=== PATIENT | female | born 1945 | race Two or more races ===

== ENCOUNTER 2020-01-09 06:38 | Inpatient (IN) | payer MEDICAID, OTHER ==
[~2020-01-09] VITALS: Ht 157.5 cm; Wt 61.4 kg
--- NOTE | 2020-01-09 07:03 | NUR ---
PT CAME TO ER BED 3 BIB RA FROM HOME WITH A BLOOD SUGAR OF 47 AT HOME. PT IS AAOX0. PATIENT IS RESPONSIVE TOWARDS PAIN AND FOLLOWS COMMAND. PATIENT IS IN A SOILED DIAPER. PATIENT IS BREATHING EVENLY AND UNLABORED ON ROOM AIR. CONNECTED TO MONITOR.
--- NOTE | 2020-01-09 07:05 | NUR ---
PT CLEANED. DIAPER AND LINEN CHANGED.
--- NOTE | 2020-01-09 07:08 | NUR ---
154 POC BS. MD MADE AWARE
--- NOTE | 2020-01-09 07:08 | NUR ---
BLOOD SUGAR AT 154, MD NOTIFIED.
--- NOTE | 2020-01-09 07:10 | NUR ---
URINE COLLECTED AND SENT TO LAB
--- NOTE | 2020-01-09 07:10 | NUR ---
BLOOD COLLECTED AND SENT TO LAB
--- NOTE | 2020-01-09 07:11 | NUR ---
PATIENT IS CLEANED, GIVEN BED BATH. AND CHANGED INTO NEW GOWN AND NEW SHEETS.
--- NOTE | 2020-01-09 07:15 | NUR ---
EKG AT BEDSIDE
--- NOTE | 2020-01-09 07:43 | NUR ---
ASSESSED PT ON BED AWAKE, AAOX1, NOT IN RESPIRATORY DISTRESS, HOOKED TO SUPERVISOR PASTE MIXING, KEPT RESTED AND COMFORTABLE. WILL CONTINUE TO MONITOR.
[2020-01-09 07:48] LABS: APPEARANCE,URINE CLOUDY (CLEAR); BILIRUBIN,URINE NEGATIVE (NEGATIVE); BLOOD, URINE TRACE-INTA Ery/uL (NEGATIVE); COLOR,URINE YELLOW (YELLOW); KETONES,URINE NEGATIVE (NEGATIVE); LEUKOCYTE ESTERASE ,URINE NEGATIVE (NEGATIVE); NITRITE, URINE NEGATIVE (NEGATIVE); PH,URINE 5.5 (5.0-8.0); PROTEIN,URINE 100 mg/dl (NEGATIVE); UGLUCOSE NEGATIVE (NEGATIVE); UROBILINOGEN,URINE 0.2 EU/dL (0.2)
[2020-01-09] MEDS ORDERED: FERR325T23 PO (07:55)
[2020-01-09] MEDS ORDERED: LISI40TA4 PO (07:55)
[2020-01-09] MEDS ORDERED: LEVO100T9 PO (07:55)
[2020-01-09] MEDS ORDERED: MELO-107 PO (07:55)
[2020-01-09] MEDS ORDERED: SIMV-46 PO (07:55)
[2020-01-09] MEDS ORDERED: SERT50TA12 PO (07:55)
[2020-01-09] MEDS ORDERED: GLIM2TAB31 PO (07:55)
[2020-01-09 08:00] LABS: BASOPHILS # (AUTO) 0.1 /CMM (0.0-0.2); BASOPHILS % (AUTO) 0.3 % (0.0-2.0); EOSINOPHILS % (AUTO) 0.8 % (0.0-6.0); HEMATOCRIT 29 % (33-45); HEMOGLOBIN 9.7 g/dL (11.5-14.8); LYMPHOCYTES # (AUTO) 0.8 /CMM (0.8-4.8); LYMPHOCYTES % (AUTO) 4.4 % (20.0-44.0); MEAN CORPUSCULAR HGB CONC 33 g/dl (31.0-36.0); MEAN CORPUSCULAR VOLUME 82 fL (82-100); MONOCYTES % (AUTO) 11.2 % (2.0-12.0); NEUTROPHILS # (AUTO) 14.8 /CMM (1.8-8.9); NEUTROPHILS % (AUTO) 83.3 % (43.0-81.0); PLATELET COUNT (AUTO) 326 /CMM (150-450); RED BLOOD CELL COUNT(AUTO) 3.58 MIL/uL (4.0-5.2); WHITE BLOOD COUNT (AUTO) 17.7 K/uL (4.3-11.0)
[2020-01-09 08:03] LABS: CALCIUM, SERUM 8.3 mg/dL (8.5-10.1); CARBON DIOXIDE 24 mmol/L (21-32); CHLORIDE 97 mmol/L (98-107); CREATININE 1.6 mg/dL (0.6-1.3); GLUCOSE 131 mg/dL (74-106); POTASSIUM 3.9 mmol/L (3.5-5.1); SODIUM SERUM 130 mmol/L (136-145); UREA NITROGEN, BLOOD 31 mg/dL (7-18)
[2020-01-09 08:10] LABS: ALANINE AMINOTRANSFERASE 9 U/L (12-78); ALBUMIN 3.4 g/dL (3.4-5.0); ALKALINE PHOSPHATASE 108 U/L (46-116); ASPARTATE AMINOTRANSFERASE 16 U/L (15-37); BILIRUBIN,DIRECT 0.1 mg/dL (0.0-0.2); BILIRUBIN,TOTAL 0.3 mg/dL (0.2-1.0); LIPASE 30 U/L (73-393); TOTAL PROTEIN, SERUM 7.8 g/dL (6.4-8.2)
[2020-01-09 08:12] LABS: BACTERIA,URINE 1+ /HPF (None Seen); WBC,URINE 0-2 /HPF (0-3)
[2020-01-09 08:13] LABS: MUCUS,URINE Moderate /LPF (None Seen); URINE AMORPHOUS URATE Moderate /HPF (None Seen)
--- NOTE | 2020-01-09 08:40 | NUR ---
PAGED [facility].
--- NOTE | 2020-01-09 08:54 | NUR ---
NOTED ELEVATED BLOOD PRESSURE. AWARE.
--- NOTE | 2020-01-09 09:35 | NUR ---
2nd page to Cresencio Flores for admission
--- NOTE | 2020-01-09 10:22 | NUR ---
ROOM GIVEN 304-1 TELE
--- NOTE | 2020-01-09 10:55 | NUR ---
REPORT GIVEN TO JASKARAN SERRANO FOR YOLIS.
--- NOTE | 2020-01-09 11:47 | NUR ---
MS/RN Hypertension Blood pressure on admission 221/82. Dr Flores informed, awaiting orders.
[2020-01-09 11:53] VITALS: BP 221/82
--- NOTE | 2020-01-09 11:58 | NUR ---
MS/RN Blood sugar Blood sugar on arrive 84.
[2020-01-09] MEDS ORDERED: hydrALAZINE HCL 50 MG TABLET PO ONE (13:00)
--- NOTE | 2020-01-09 13:20 | NUR ---
MS/RN Orders Call received from Dr Flores - hydralazine 50mg PO X1 dose.
[2020-01-09] MEDS ORDERED: IV NS 0.9% 1,000 ML IV PRN (13:38)
[2020-01-09] MEDS ORDERED: DEXTROSE 50%-WATER 50 ML DISP.SYRIN IV PRN (14:00)
[2020-01-09] MEDS ORDERED: Z GUARD REMEDY 2 OZ OINT TP PRN (14:00)
[2020-01-09 14:24] VITALS: BP 146/83
[2020-01-09] MEDS: IV D5/ 0.9% NACL 1,000 ML IV PRN (14:33)
[2020-01-09] MEDS ORDERED: ACETAMINOPHEN 325 MG TABLET ONE (14:57)
[2020-01-09] MEDS: ACETAMINOPHEN 325 MG TABLET PO PRN (14:58)
[2020-01-09] MEDS ORDERED: ENOXAPARIN SODIUM 30 MG/0.3 ML DISP.SYRIN ONE (15:00)
[2020-01-09] MEDS: ENOXAPARIN SODIUM 30 MG/0.3 ML DISP.SYRIN SQ SCH (15:04)
[2020-01-09 16:00] VITALS: BP 129/67
--- NOTE | 2020-01-09 16:07 | NUR ---
MS/RN Medications Lovenox and 650mg tylenol administered, unable to scan as system down at this time.
[2020-01-09] MEDS: BLOOD SUGAR DIAGNOSTIC 1 EACH STRIP IN SCH ×2 (16:49→22:04)
[2020-01-09] MEDS: FERROUS SULFATE (325 MG) 325 MG/TAB TABLET PO SCH (16:49)
--- NOTE | 2020-01-09 18:26 | NUR ---
MS/RN End note Blood pressure now controlled, latest reading 129/67. Complaining of headache, tylenol given with good result. Blood sugar 92, encouraged to eat dinner to prevent blood glucose fron dropping, patient stated understanding. Able to turn and reposition self in bed, needs frequent reminders to keep left arm straight due to heplock positioning. All needs attended at this time, will endore to night warehouse selector.
--- NOTE | 2020-01-09 19:58 | NUR ---
RN NOTES RECEIVED PATIENT AWAKE, ALERT ORIENTED X3, NO SIGNS OF ACUTE RESPIRATORY DISTRESS NOTED, REPOSITIONED FOR COMFORT, HUNGARIAN SPEAKING, TELE MONITOR READS SINUS RHYTHM, SAFETY MEASURES IN PLACE, ASPIRATION PRECAUTION EMPHASIZED, BED IN LOW LOCKED POSITION, CALL LIGHT WITHIN EASY REACH, ALL NEEDS ANTICIPATED, WILL CONTINUE TO MONITOR ACCORDINGLY.
[2020-01-09] MEDS: SIMVASTATIN 20 MG TABLET PO SCH (21:48)
[2020-01-09] MEDS: hydrALAZINE HCL 25 MG TABLET PO SCH (21:48)
[2020-01-10] MEDS: hydrALAZINE HCL 25 MG TABLET PO SCH ×3 (05:55→21:15)
--- NOTE | 2020-01-10 06:00 | NUR ---
RN NOTES ALL NEEDS ATTENDED AND MET. ABLE TO REST AND SLEPT AT INTERVALS, PATIENT ASLEEP, EASILY AROUSABLE., ALERT ORIENTED X3, NO SIGNS OF ACUTE RESPIRATORY DISTRESS NOTED, REPOSITIONED FOR COMFORT, [place] SPEAKING, TELE MONITOR READS SINUS RHYTHM, SAFETY MEASURES IN PLACE, ASPIRATION PRECAUTION EMPHASIZED, BED IN LOW LOCKED POSITION, CALL LIGHT WITHIN EASY REACH, ALL NEEDS ANTICIPATED, WILL ENDORSE TO AM NURSE FOR CONTINUITY OF CARE.
[2020-01-10 06:32] LABS: BASOPHILS # (AUTO) 0.1 /CMM (0.0-0.2); BASOPHILS % (AUTO) 0.9 % (0.0-2.0); EOSINOPHILS % (AUTO) 4.1 % (0.0-6.0); HEMATOCRIT 23 % (33-45); LYMPHOCYTES # (AUTO) 1.9 /CMM (0.8-4.8); LYMPHOCYTES % (AUTO) 12.9 % (20.0-44.0); MEAN CORPUSCULAR HGB CONC 34 g/dl (31.0-36.0); MEAN CORPUSCULAR VOLUME 81 fL (82-100); MONOCYTES # (AUTO) 1.7 /CMM (0.1-1.30); MONOCYTES % (AUTO) 11.7 % (2.0-12.0); NEUTROPHILS # (AUTO) 10.3 /CMM (1.8-8.9); NEUTROPHILS % (AUTO) 70.4 % (43.0-81.0); PLATELET COUNT (AUTO) 311 /CMM (150-450); RED BLOOD CELL COUNT(AUTO) 2.88 MIL/uL (4.0-5.2); WHITE BLOOD COUNT (AUTO) 14.6 K/uL (4.3-11.0)
[2020-01-10] MEDS: IV D5/ 0.9% NACL 1,000 ML IV PRN ×2 (06:37→22:25)
[2020-01-10 06:45] LABS: ALANINE AMINOTRANSFERASE 6 U/L (12-78); ALBUMIN 2.4 g/dL (3.4-5.0); ALKALINE PHOSPHATASE 89 U/L (46-116); ASPARTATE AMINOTRANSFERASE 9 U/L (15-37); BILIRUBIN,TOTAL 0.2 mg/dL (0.2-1.0); CALCIUM, SERUM 7.8 mg/dL (8.5-10.1); CARBON DIOXIDE 22 mmol/L (21-32); CHLORIDE 102 mmol/L (98-107); CREATININE 1.6 mg/dL (0.6-1.3); GLUCOSE 86 mg/dL (74-106); MAGNESIUM 2.2 mg/dL (1.8-2.4); PHOSPHORUS 4.2 mg/dL (2.5-4.9); SODIUM SERUM 134 mmol/L (136-145); TOTAL PROTEIN, SERUM 5.9 g/dL (6.4-8.2); UREA NITROGEN, BLOOD 29 mg/dL (7-18)
[2020-01-10 07:02] LABS: IRON, SERUM 9 ug/dl (50-175); TOTAL IRON BINDING CAPACITY 188 ug/dl (250-450)
[2020-01-10 07:03] LABS: CHOLESTEROL 122 mg/dL (<200); CREATINE KINASE, TOTAL 12 U/L (26-192); HDL CHOLESTEROL 42 mg/dL (40-60); LDL 62 mg/dL (0-99); THYROID STIMULATING HORMONE 7.347 uIU/mL (0.358-3.74); TRIGLYCERIDES 81 mg/dL (30-150)
[2020-01-10] MEDS ORDERED: LEVOTHYROXINE SODIUM 100 MCG TABLET PO SCH (07:30)
[2020-01-10 08:00] VITALS: BP 106/42
--- NOTE | 2020-01-10 08:00 | NUR ---
ms rn received on bed, awake,alert,oriented x3,not in any form of distress,respirations even and unlabored, no sob noted, lungs are clear,abdomen soft,positive bowel sounds,denies pain at this time,all needs attended.
[2020-01-10] MEDS: BLOOD SUGAR DIAGNOSTIC 1 EACH STRIP IN SCH ×4 (08:16→22:23)
[2020-01-10] MEDS: SERTRALINE HCL 50 MG TABLET PO SCH (08:17)
[2020-01-10] MEDS: FERROUS SULFATE (325 MG) 325 MG/TAB TABLET PO SCH ×2 (08:18→18:12)
--- NOTE | 2020-01-10 08:20 | NUR ---
ms rn bs taken-209,no coverage give, patient just ate and hx of hypoglycemia.
--- NOTE | 2020-01-10 08:30 | NUR ---
ms chowdhury breakfast served,due meds given,tolerated well.
--- NOTE | 2020-01-10 10:00 | NUR ---
ms rn was seen by yousif donnelly/ orders made and carried out.
--- NOTE | 2020-01-10 10:38 | NUR ---
WOUND CARE CONSULT: PT PRESENTS WITH LEFT HEEL WOUND, PRESENT ON ADMISSION. RECOMMEND DPM CONSULT. DR LITTLE NOTIFIED OF CONSULT REQUEST. HEELS FLOATED. RECOMMENDATIONS MADE FOR SKIN PROTECTION. DISCUSSED WITH NURSING STAFF. PT IS INCONTINENT. WILL SEE PRN. RODRIGUEZ IN AGREEMENT WITH PLAN OF CARE. Addendum: 01/10/20 at 1039 by CESAR PALOMO WNDNU Amended: Links added.
--- NOTE | 2020-01-10 12:00 | NUR ---
ms rn patient refused accucheck, no s/s of hypo/hyperglycemia noted.
[2020-01-10] MEDS: ACETAMINOPHEN 325 MG TABLET PO PRN (14:12)
[2020-01-10] MEDS: SOD FERRIC GLUC 125 MG in IV NS 0.9% 100 ML IV SCH (14:12)
[2020-01-10] MEDS: ENOXAPARIN SODIUM 30 MG/0.3 ML DISP.SYRIN SQ SCH (15:43)
[2020-01-10 16:00] VITALS: BP 152/74
--- NOTE | 2020-01-10 16:00 | NUR ---
ms rn patient transferred to room 311 bed 1,all needs attended.
--- NOTE | 2020-01-10 17:00 | NUR ---
ms rn due meds given,tolerated well.
--- NOTE | 2020-01-10 17:30 | NUR ---
ms rn bs - 161- no coverage given due to patient's hx of low bs on the 70's yesterday, recheck again tonight, no s/s of hyper/hypoglycemia.
--- NOTE | 2020-01-10 19:50 | NUR ---
RN NOTES RECEIVED PATIENT AWAKE IN BED, NO SIGNS OF ACUTE RESPIRATORY DISTRESS NOTED, SAFETY MEASURES IN PLACE, ASPIRATION PRECAUTION EMPHASIZED, IV ACCESS INTACT AND PATENT, CALL LIGHT WITH IN EASY REACH. KEEP CLEAN WARM DRY AND COMFORTABLE. ALL NEEDS ANTICIPATED, DENIES PAIN OR DISCOMFORT AT THIS TIME. WILL CONTINUE TO MONITOR ACCORDINGLY.
[2020-01-10 20:00] VITALS: BP 126/55
[2020-01-10 20:35] VITALS: BP 126/55
[2020-01-10] MEDS: SIMVASTATIN 20 MG TABLET PO SCH (21:15)
[2020-01-10] MEDS: INSULIN REGULAR, HUMAN 100 UNIT/ML 3 ML VIAL SQ PRN (22:24)
[2020-01-11] MEDS: hydrALAZINE HCL 25 MG TABLET PO SCH ×3 (06:06→21:02)
[2020-01-11 06:27] LABS: BASOPHILS # (AUTO) 0.1 /CMM (0.0-0.2); BASOPHILS % (AUTO) 0.9 % (0.0-2.0); EOSINOPHILS % (AUTO) 5.3 % (0.0-6.0); HEMATOCRIT 27 % (33-45); HEMOGLOBIN 8.7 g/dL (11.5-14.8); LYMPHOCYTES # (AUTO) 1.7 /CMM (0.8-4.8); LYMPHOCYTES % (AUTO) 12.7 % (20.0-44.0); MEAN CORPUSCULAR HGB CONC 33 g/dl (31.0-36.0); MEAN CORPUSCULAR VOLUME 82 fL (82-100); MONOCYTES # (AUTO) 1.7 /CMM (0.1-1.30); MONOCYTES % (AUTO) 12.7 % (2.0-12.0); NEUTROPHILS # (AUTO) 9.1 /CMM (1.8-8.9); NEUTROPHILS % (AUTO) 68.4 % (43.0-81.0); PLATELET COUNT (AUTO) 372 /CMM (150-450); RED BLOOD CELL COUNT(AUTO) 3.28 MIL/uL (4.0-5.2); WHITE BLOOD COUNT (AUTO) 13.3 K/uL (4.3-11.0)
[2020-01-11 06:39] LABS: PTH, INTACT 53 pg/mL (15-65)
--- NOTE | 2020-01-11 06:39 | NUR ---
RN NOTES ALL NEEDS ATTENDED AND MET, ABLE TO REST AND SLEPT AT INTERVALS, PATIENT AWAKE IN BED, NO SIGNS OF ACUTE RESPIRATORY DISTRESS NOTED, SAFETY MEASURES IN PLACE, ASPIRATION PRECAUTION EMPHASIZED, IV ACCESS INTACT AND PATENT, CALL LIGHT WITH IN EASY REACH. KEEP CLEAN WARM DRY AND COMFORTABLE. ALL NEEDS ANTICIPATED, DENIES PAIN OR DISCOMFORT AT THIS TIME. WILL ENDORSE TO AM NURSE FOR CONTINUITY OF CARE.
[2020-01-11 07:33] LABS: CARBON DIOXIDE 22 mmol/L (21-32); CHLORIDE 105 mmol/L (98-107); CREATININE 1.7 mg/dL (0.6-1.3); GLUCOSE 112 mg/dL (74-106); POTASSIUM 4.1 mmol/L (3.5-5.1); SODIUM SERUM 136 mmol/L (136-145); UREA NITROGEN, BLOOD 29 mg/dL (7-18)
[2020-01-11 08:00] VITALS: BP 155/70
[2020-01-11] MEDS: BLOOD SUGAR DIAGNOSTIC 1 EACH STRIP IN SCH ×4 (08:45→21:56)
[2020-01-11] MEDS: FERROUS SULFATE (325 MG) 325 MG/TAB TABLET PO SCH ×2 (09:05→16:32)
[2020-01-11] MEDS: LEVOTHYROXINE SODIUM 112 MCG TABLET PO SCH (09:05)
[2020-01-11] MEDS: ACETAMINOPHEN 325 MG TABLET PO PRN (09:05)
[2020-01-11] MEDS: SERTRALINE HCL 50 MG TABLET PO SCH (09:05)
[2020-01-11] MEDS: HYDROGEL DRESSING 90 GM TUBE TP SCH (09:19)
[2020-01-11] MEDS: IV D5/ 0.9% NACL 1,000 ML IV PRN (11:49)
[2020-01-11 12:06] LABS: *SPE A/G RATIO 0.8 (0.7-1.7); *SPE ALBUMIN 2.4 g/dL (2.9-4.4); *SPE ALPHA-1-GLOBULIN 0.3 g/dL (0.0-0.4); *SPE ALPHA-2-GLOBULIN 0.6 g/dL (0.4-1.0); *SPE BETA GLOBULIN 0.7 g/dL (0.7-1.3); *SPE M-SPIKE Not Observed g/dL (Not Observed); *SPEGAMMA GLOBULIN 1.3 g/dL (0.4-1.8)
[2020-01-11] MEDS ORDERED: SOD FERRIC GLUC 125 MG in IV NS 0.9% 100 ML IV SCH (14:00)
[2020-01-11] MEDS: SOD FERRIC GLUC 125 MG in IV NS 0.9% 100 ML IV SCH (15:37)
[2020-01-11 16:00] VITALS: BP 154/58
[2020-01-11] MEDS: ENOXAPARIN SODIUM 30 MG/0.3 ML DISP.SYRIN SQ SCH (16:33)
[2020-01-11] MEDS: INSULIN REGULAR, HUMAN 100 UNIT/ML 3 ML VIAL SQ PRN (17:50)
--- NOTE | 2020-01-11 18:00 | NUR ---
pt. without complaints except for tylenol given in am for headache.iv infusing blood glucose levels stable .
[2020-01-11 20:00] VITALS: BP_SYST 142; BP_SYST 147; BP_SYST 98; BP_DIAS 75; BP_DIAS 82
--- NOTE | 2020-01-11 20:00 | NUR ---
MS/RN OPENING NOTES RECEIVED PATIENT IN BED, AWAKE, ALERT X2, FILIPINO SPEAKING WITH GOOD EYE CONTACT, ON ROOM AIR, RESPIRATIONS EVEN AND UNLABORED, SKIN WARM TO TOUCH, BED LOCKED, CALL LIGTHS WITHIN REACH, RECEIVED ENDORSEMENT FROM AM RN FOR YOLIS. WILL MONITOR FOR ANY CHANGES.
[2020-01-11] MEDS: SIMVASTATIN 20 MG TABLET PO SCH (22:00)
[2020-01-12] MEDS: IV D5/ 0.9% NACL 1,000 ML IV PRN (00:15)
--- NOTE | 2020-01-12 02:04 | NUR ---
urine culture collected via straight cath, patient was made aware and tolerated procedure. hygience care, hand washing before and after.
[2020-01-12] MEDS: ACETAMINOPHEN 325 MG TABLET PO PRN ×2 (02:23→21:46)
--- NOTE | 2020-01-12 02:26 | NUR ---
MS/RN NOTES PATIENT REPORTED HEADACHE AND REQUESTED NEEDED TYLENOL 650 MG PO TO MONITOR PAIN RELIEF.
[2020-01-12] MEDS: hydrALAZINE HCL 25 MG TABLET PO SCH ×3 (05:01→21:46)
[2020-01-12] MEDS: BLOOD SUGAR DIAGNOSTIC 1 EACH STRIP IN SCH ×4 (06:04→21:58)
--- NOTE | 2020-01-12 06:07 | NUR ---
MS/RN NOTES PATIENT BLOOD SUGAR CHECK AT 140. WENT BACK TO SLEEP AND DO NOT WANT TO HAVE FOOD AT THIS TIME,
--- NOTE | 2020-01-12 06:31 | NUR ---
311-1 MS/RN NOTES PATIENTS ABLE TO SLEEP DURING THE SHIFT.ALERT, ORIENTED X3 ATTENDED TO ALL NEEDS, MONITORED FOR SAFETY. PROVIDED FLUIDS AND OFFERED SNACKS, URINE COLLECTED PER MD ORDER, WILL ENDORSE TO AM RN FOR YOLIS. BED LOCKED, MONITORED FOR ANY CHANGES,CALL LIGHTS WITHIN REACH, IV FLUIDS REPLACED, IV SITE RIGHT AC PATENT.
[2020-01-12 07:03] LABS: BASOPHILS # (AUTO) 0.1 /CMM (0.0-0.2); BASOPHILS % (AUTO) 0.9 % (0.0-2.0); EOSINOPHILS % (AUTO) 4.2 % (0.0-6.0); HEMATOCRIT 25 % (33-45); HEMOGLOBIN 8.5 g/dL (11.5-14.8); LYMPHOCYTES % (AUTO) 13.3 % (20.0-44.0); MEAN CORPUSCULAR HGB CONC 34 g/dl (31.0-36.0); MEAN CORPUSCULAR VOLUME 81 fL (82-100); MONOCYTES # (AUTO) 1.5 /CMM (0.1-1.30); MONOCYTES % (AUTO) 9.7 % (2.0-12.0); NEUTROPHILS # (AUTO) 10.9 /CMM (1.8-8.9); NEUTROPHILS % (AUTO) 71.9 % (43.0-81.0); PLATELET COUNT (AUTO) 392 /CMM (150-450); WHITE BLOOD COUNT (AUTO) 15.2 K/uL (4.3-11.0)
[2020-01-12 07:04] LABS: ALANINE AMINOTRANSFERASE 7 U/L (12-78); ALBUMIN 2.4 g/dL (3.4-5.0); ALKALINE PHOSPHATASE 83 U/L (46-116); ASPARTATE AMINOTRANSFERASE 9 U/L (15-37); BILIRUBIN,TOTAL 0.1 mg/dL (0.2-1.0); CALCIUM, SERUM 7.8 mg/dL (8.5-10.1); CARBON DIOXIDE 22 mmol/L (21-32); CHLORIDE 106 mmol/L (98-107); CREATININE 1.4 mg/dL (0.6-1.3); GLUCOSE 148 mg/dL (74-106); MAGNESIUM 2.2 mg/dL (1.8-2.4); PHOSPHORUS 4.8 mg/dL (2.5-4.9); SODIUM SERUM 136 mmol/L (136-145); TOTAL PROTEIN, SERUM 5.9 g/dL (6.4-8.2); UREA NITROGEN, BLOOD 24 mg/dL (7-18)
[2020-01-12 08:00] VITALS: BP 132/55
--- NOTE | 2020-01-12 08:00 | NUR ---
RN NOTES RECEIVED PATIENT IN THE BED AWAKE A/O X3 POLISH SPEAKER. NO ACUTE RESPIRATORY DISTRESS ON ROOM AIR. PATIENT REFUSED PAIN, IV ACCESS ON RIGHT AC AREA INTACT, ALSO EDEMA ON RIGHT ARM KEEP ELEVATED USING PILLOW, PATIENT HAS DVT PUMP, ADMINISTERED SCHEDULED MEDICATION, V/S STABLE ASSIST TURN AND REPOSTION Q 2 HR. DIABETIC WOUND ON LEFT HEEL , DRESSING INTACT. CALL LIGHT WITHIN TO REACH, CONTINUED MONITORING.
[2020-01-12] MEDS: FERROUS SULFATE (325 MG) 325 MG/TAB TABLET PO SCH ×2 (08:39→16:50)
[2020-01-12] MEDS: SERTRALINE HCL 50 MG TABLET PO SCH (08:40)
[2020-01-12] MEDS: LEVOTHYROXINE SODIUM 112 MCG TABLET PO SCH (08:40)
[2020-01-12] MEDS: HYDROGEL DRESSING 90 GM TUBE TP SCH (08:40)
--- NOTE | 2020-01-12 12:00 | NUR ---
RN NOTES BS-162 MG/DL, COVERAGE GIVEN, PATIENT STABLE, ASSIST TURN AND REPOSTION Q 2 HR, PATIENT REFUSED PAIN.
[2020-01-12] MEDS: INSULIN REGULAR, HUMAN 100 UNIT/ML 3 ML VIAL SQ PRN (12:55)
[2020-01-12] MEDS: SOD FERRIC GLUC 125 MG in IV NS 0.9% 100 ML IV SCH (15:12)
[2020-01-12] MEDS: ENOXAPARIN SODIUM 30 MG/0.3 ML DISP.SYRIN SQ SCH (15:13)
--- NOTE | 2020-01-12 16:51 | NUR ---
RN NOTES BS-63 MG/DL, ADMINISTERED JUICE, AND PATIENT EATING DINNER, V/S TAKEN STABLE, CALL LIGHT WITHIN TO REACH. CONTINUED MONITORING.
--- NOTE | 2020-01-12 18:00 | NUR ---
RN NOTES PATIENT EATING DINNER 10 % POOR EATER, V//S WNL, REFUSED PAIN, CALL LIGHT WITHIN TO REACH, ASSIST TURN AND REPOSTION Q 2 HR, ENDORSED ONCOMING NURSE FOLLOW PLAN OF CARE.
[2020-01-12] MEDS: LEVOFLOXACIN (500MG) 500 MG TABLET PO SCH (19:24)
--- NOTE | 2020-01-12 19:25 | NUR ---
MS RN NOTES PATIENT IN BED, AWAKE, ALERT AND ORIENTED X 3. BREATHING EVEN AND UNLABORED ON ROOM AIR. SHOWS NO SIGNS OF ACUTE RESPIRATORY DISTRESS. IV ON L FA 22G SALINE LOCK. SHOWS NO SIGNS OF INFILTRATION, NO REDNESS. SAFETY PRECAUTIONS IN PLACE. BED IN LOWEST POSITION, LOCKED, AND CALL LIGHT KEPT WITHIN REACH. WILL CONTINUE TO MONITOR.
[2020-01-12 19:30] VITALS: BP 140/60
[2020-01-12] MEDS: ONDANSETRON HCL/PF 4 MG/2 ML VIAL IVP PRN (19:45)
--- NOTE | 2020-01-12 19:45 | NUR ---
MS RN NOTES PATIENT COMPLAINED ON NAUSEA AND HAD 1 EPISODE FOR EMESIS. GIVEN PRN QUINCY 1944. WILL CONTINUE TO MONITOR.
[2020-01-12 20:00] VITALS: BP 140/60
[2020-01-12] MEDS: SIMVASTATIN 20 MG TABLET PO SCH (21:45)
--- NOTE | 2020-01-12 21:46 | NUR ---
MS RN NOTES PATIENT COMPLAINING OF HEADACHE. GIVEN PRN TYLENOL. WILL CONTINUE TO MONITOR.
[2020-01-13] MEDS: hydrALAZINE HCL 25 MG TABLET PO SCH ×3 (04:49→21:52)
[2020-01-13 06:25] LABS: BASOPHILS # (AUTO) 0.1 /CMM (0.0-0.2); BASOPHILS % (AUTO) 0.5 % (0.0-2.0); EOSINOPHILS % (AUTO) 1.7 % (0.0-6.0); HEMATOCRIT 24 % (33-45); HEMOGLOBIN 7.7 g/dL (11.5-14.8); LYMPHOCYTES # (AUTO) 1.4 /CMM (0.8-4.8); LYMPHOCYTES % (AUTO) 6.1 % (20.0-44.0); MEAN CORPUSCULAR HGB CONC 33 g/dl (31.0-36.0); MEAN CORPUSCULAR VOLUME 82 fL (82-100); MONOCYTES # (AUTO) 1.9 /CMM (0.1-1.30); MONOCYTES % (AUTO) 8.4 % (2.0-12.0); NEUTROPHILS # (AUTO) 18.5 /CMM (1.8-8.9); NEUTROPHILS % (AUTO) 83.3 % (43.0-81.0); PLATELET COUNT (AUTO) 374 /CMM (150-450); RED BLOOD CELL COUNT(AUTO) 2.88 MIL/uL (4.0-5.2); WHITE BLOOD COUNT (AUTO) 22.2 K/uL (4.3-11.0)
[2020-01-13] MEDS: BLOOD SUGAR DIAGNOSTIC 1 EACH STRIP IN SCH ×4 (06:43→22:24)
--- NOTE | 2020-01-13 06:46 | NUR ---
MS RN NOTES PATIENT IN BED, ASLEEP, ALERT AND ORIENTED X 3. BREATHING EVEN AND UNLABORED ON ROOM AIR. SHOWS NO SIGNS OF ACUTE RESPIRATORY DISTRESS. IV ON L FA 22G SALINE LOCK. SHOWS NO SIGNS OF INFILTRATION, NO REDNESS. ALL DUE MEDICATIONS GIVEN. SAFETY PRECAUTIONS IN PLACE. BED IN LOWEST POSITION, LOCKED, AND CALL LIGHT KEPT WITHIN REACH. WILL ENDORSE TO ONCOMING NURSE.
[2020-01-13 06:58] LABS: CALCIUM, SERUM 7.7 mg/dL (8.5-10.1); CARBON DIOXIDE 19 mmol/L (21-32); CHLORIDE 105 mmol/L (98-107); CREATININE 1.8 mg/dL (0.6-1.3); GLUCOSE 113 mg/dL (74-106); POTASSIUM 4.5 mmol/L (3.5-5.1); SODIUM SERUM 134 mmol/L (136-145); UREA NITROGEN, BLOOD 28 mg/dL (7-18)
[2020-01-13] MEDS: LEVOTHYROXINE SODIUM 112 MCG TABLET PO SCH (07:57)
[2020-01-13 08:00] VITALS: BP 141/66
[2020-01-13] MEDS: FERROUS SULFATE (325 MG) 325 MG/TAB TABLET PO SCH ×2 (08:10→17:56)
[2020-01-13] MEDS: ONDANSETRON HCL/PF 4 MG/2 ML VIAL IVP PRN ×2 (08:10→19:17)
[2020-01-13] MEDS: SERTRALINE HCL 50 MG TABLET PO SCH (08:10)
[2020-01-13] MEDS: HYDROGEL DRESSING 90 GM TUBE TP SCH (08:11)
[2020-01-13 08:12] VITALS: BP 141/66
--- NOTE | 2020-01-13 08:12 | NUR ---
RN NOTES RECEIVED PATIENT IN THE BED A/O X3, LAO SPEAKER, PATIENT HAS NO ACUTE RESPIRATORY DISTRESS, ON ROOM AIR, WAS COMPLAINING OF NAUSEA, ADMINISTERED ZOFRAN 4 MG/ML IV PUSH, CALL LIGHT WITHIN TO REACH, CONTINUED MONITORING.
--- NOTE | 2020-01-13 12:00 | NUR ---
RN NOTES BS-151 MG/DL NO COVERAGE GIVEN, PATIENT NPO, MEDICATION WERE ADMINISTERED FOR NAUSEA EFFECTIVE. ADMINISTERED SCHEDULED MEDICATION. ASSIST TURN AND REPOSTION Q 2 HR.
[2020-01-13 12:44] VITALS: BP 139/58
[2020-01-13] MEDS: SOD FERRIC GLUC 125 MG in IV NS 0.9% 100 ML IV SCH (14:42)
[2020-01-13] MEDS: IV D5/ 0.9% NACL 1,000 ML IV PRN (14:43)
[2020-01-13] MEDS: ENOXAPARIN SODIUM 30 MG/0.3 ML DISP.SYRIN SQ SCH (14:43)
[2020-01-13 15:54] VITALS: BP 127/58
[2020-01-13 16:00] VITALS: BP 127/58
[2020-01-13] MEDS: LEVOFLOXACIN (500MG) 500 MG TABLET PO SCH (17:56)
--- NOTE | 2020-01-13 19:10 | NUR ---
RN NOTES: RECEIVED AWAKE ON BED IN SEMI FOWLERS POSITION, A/OX2-3, IRISH SPEAKING ONLY, WHILE DOING ENDORSEMENT SHE COMPLAINED OF FEELING NAUSEATED,REQUEST OUTGOING SHIFT IF SHE CAN GIVE THE PRN MEDICATION,IV CANNULA INTACT ON THE LFA G#22 WITH IVF OF D5%NS AT 80 ML/HR, ORIENTED TO UNIT AND STAFF, FALL,SAFETY AND ASPIRATION PRECAUTION OBSERVED, NON LABORED BREATHING.
--- NOTE | 2020-01-13 19:17 | NUR ---
rn notes administered Zofran 4 mg/ml iv push for nausea and vomiting, bs-149mg/dl coverage not given because NPO. Administered scheduled medication, infusing D5NS at 80 ml/hr on left FA intact, assist turn and reposition q2 hr. call light within to reach. endorsed oncoming nurse follow plan of care.
[2020-01-13 20:00] VITALS: BP 142/64
[2020-01-13] MEDS: MEROPENEM 1 G in IV NS 0.9% 100 ML IV SCH (21:51)
[2020-01-13] MEDS: SIMVASTATIN 20 MG TABLET PO SCH (22:07)
[2020-01-13] MEDS: INSULIN REGULAR, HUMAN 100 UNIT/ML 3 ML VIAL SQ PRN (22:27)
--- NOTE | 2020-01-13 22:39 | NUR ---
RN NOTES: BLOOD SUGAR CHECKED-152, INSULIN GIVEN PER SCALE, WILL CONTINUE TO MONITOR FOR SIGN OF HYPER/HYPOGLYCEMIA.
[2020-01-14] VITALS: BP 140/67
[2020-01-14 04:00] VITALS: BP 149/68
[2020-01-14] MEDS: IV D5/ 0.9% NACL 1,000 ML IV PRN (04:45)
--- NOTE | 2020-01-14 04:45 | NUR ---
RN NOTES: IVF COMPLETED, REPLACED WITH NEW BOTTLE OF D5%NS AT 80ML/HR.ASLEEP, NO PAIN OR ABDOMINAL DISCOMFORT ABLE TO SLEEP WELL IN THE NIGHT.
[2020-01-14] MEDS: hydrALAZINE HCL 25 MG TABLET PO SCH ×3 (05:01→21:05)
--- NOTE | 2020-01-14 06:59 | NUR ---
RN NOTES: ABLE TO SLEEP AND REST, COOPERATIVE, CLEAN AND CHANGE, HAD 1 BM AND PASS URINEX1, NO NAUSEA OR VOMITING AFTER SHE HAD PRN MEDICINE LAST NIGHT, KEPT COMFORTABLE IN BED, ON CLOSE WATCH, ENDORSED FOR CONTINUITY OF CARE,FOR LAB TEST TODAY.
[2020-01-14] MEDS: LEVOTHYROXINE SODIUM 112 MCG TABLET PO SCH (07:30)
[2020-01-14 08:00] VITALS: BP 135/55
--- NOTE | 2020-01-14 08:00 | NUR ---
MS/RN NOTE THE PATIENT IS RECEIVED IN BED. THE PATIENT IS ALERT AND ORIENTED X3. DENIES PAIN. PATIENT IS IN ROOM AIR AND DENIES SOB. RESPIRATION REGULAR AND UNLABORED. THE PATIENT IN NO APPARENT DISTRESS. NPO. ABDOMEN SOFT AND NON-DISTENDED. LFA G 22 PATENT AND D5NS INFUSING AT 80 ML/HR AND NO S/S INFILTRATION NOTED. BED LOW AND LOCKED. SIDE RAILS UP X3. CALL LIGHT WITHIN REACH. WILL CONTINUE TO MONITOR.
[2020-01-14] MEDS: MEROPENEM 1 G in IV NS 0.9% 100 ML IV SCH ×2 (08:30→20:44)
[2020-01-14 08:51] LABS: BASOPHILS # (AUTO) 0.1 /CMM (0.0-0.2); BASOPHILS % (AUTO) 0.2 % (0.0-2.0); EOSINOPHILS % (AUTO) 0.2 % (0.0-6.0); HEMATOCRIT 23 % (33-45); HEMOGLOBIN 7.3 g/dL (11.5-14.8); LYMPHOCYTES # (AUTO) 1.3 /CMM (0.8-4.8); LYMPHOCYTES % (AUTO) 3.5 % (20.0-44.0); MEAN CORPUSCULAR HGB CONC 33 g/dl (31.0-36.0); MEAN CORPUSCULAR VOLUME 82 fL (82-100); MONOCYTES # (AUTO) 2.1 /CMM (0.1-1.30); MONOCYTES % (AUTO) 5.7 % (2.0-12.0); NEUTROPHILS % (AUTO) 90.4 % (43.0-81.0); PLATELET COUNT (AUTO) 356 /CMM (150-450); RED BLOOD CELL COUNT(AUTO) 2.74 MIL/uL (4.0-5.2)
--- NOTE | 2020-01-14 08:58 | NUR ---
MS/RN NOTE THE PATIENT`S BLOOD SUGAR IS 142. NO COVERAGE GIVEN DUE TO PATIENT IS NPO.
[2020-01-14] MEDS: FERROUS SULFATE (325 MG) 325 MG/TAB TABLET PO SCH ×2 (09:00→16:24)
[2020-01-14] MEDS: SERTRALINE HCL 50 MG TABLET PO SCH (09:00)
[2020-01-14] MEDS: BLOOD SUGAR DIAGNOSTIC 1 EACH STRIP IN SCH ×4 (09:00→22:39)
[2020-01-14 09:02] LABS: WHITE BLOOD COUNT (AUTO) 36.6 K/uL (4.3-11.0)
[2020-01-14] MEDS: HYDROGEL DRESSING 90 GM TUBE TP SCH (09:03)
--- NOTE | 2020-01-14 09:08 | NUR ---
MS/RN NOTE CLINICAL PROGRAMMER ANN IS MADE AWARE OF WBC LEVEL OF 36.6. PER CLINICAL PROGRAMMER HE WILL ORDER ZOSYN FOR THE PATIENT. THE PATIENT AFEBRILE AND IN NO APPARENT DISTRESS AT THIS TIME. WILL CONTINUE TO MONITOR.
[2020-01-14 09:41] LABS: CALCIUM, SERUM 7.9 mg/dL (8.5-10.1); CARBON DIOXIDE 19 mmol/L (21-32); CHLORIDE 106 mmol/L (98-107); CREATININE 2.2 mg/dL (0.6-1.3); GLUCOSE 112 mg/dL (74-106); MAGNESIUM 2.2 mg/dL (1.8-2.4); PHOSPHORUS 5.1 mg/dL (2.5-4.9); POTASSIUM 4.1 mmol/L (3.5-5.1); SODIUM SERUM 136 mmol/L (136-145); UREA NITROGEN, BLOOD 34 mg/dL (7-18)
[2020-01-14 10:13] LABS: LYMPHOCYTES % (MANUAL) 7 % (16-48); MONOCYTES % (MANUAL) 3 % (0-11.0); NEUTROPHILS % (MANUAL) 90 (42-76)
--- NOTE | 2020-01-14 12:12 | NUR ---
MS/RN NOTE THE PATIENT`S BLOOD SUGAR IS 133. NO COVERAGE GIVEN DUE TO PATINE BEING NPO.
--- NOTE | 2020-01-14 12:39 | NUR ---
MS/RN NOTE GARETH JUAREZ IS MADE AWARE THAT HIDA SCAN ORDERED ROUTINE WILL BE DONE ON THURSDAY SINCE THERE IS NO AEROPLANE PILOT DURING WEEKENDS UNLESS THE ORDER IS PLACED STAT. IF THE ORDER IS STAT THAN A AEROPLANE PILOT WILL BE CALLED IN TO DO. PER GARETH JUAREZ ORDER OF HIDA SCAN IS CHANGED FROM ROUTINE TO STAT. NOTED AND CARRIED OUT.
[2020-01-14 12:49] VITALS: BP 133/50
[2020-01-14] MEDS: SOD FERRIC GLUC 125 MG in IV NS 0.9% 100 ML IV SCH (14:49)
[2020-01-14] MEDS: ENOXAPARIN SODIUM 30 MG/0.3 ML DISP.SYRIN SQ SCH (14:51)
[2020-01-14 16:00] VITALS: BP 152/62
--- NOTE | 2020-01-14 16:11 | NUR ---
NM: ROMAN SCAN WAS COMPLETED: TECH:RB.
--- NOTE | 2020-01-14 16:28 | NUR ---
MS/RN NOTE BLOOD SUGAR IS 138. NO INSULIN COVERAGE GIVEN DUE TO PATIENT REMAINING NPO FOR DIAGNOSIS.
--- NOTE | 2020-01-14 17:00 | NUR ---
MS/RN NOTE PER MEAT COUNTER CLERK ANN OK TO TO USE IN AND OUT CATH TO COLLECT URINE SPECIMEN.
[2020-01-14] MEDS ORDERED: FEE PK DOSING 1 MIN EA MC ONE (18:03)
--- NOTE | 2020-01-14 18:14 | NUR ---
MS/RN NOTE THE PATIENT IS ALERT AND ORIENTED X3. DENIES SOB. IN ROOM AIR AND OXYGEN SATURATION IS AT 95%. DENIES SOB. RESPIRATION EVEN AND UNLABORED. THE PATIENT IN NO APPARENT DISTRESS. THE PATIENT JUST BACK FROM HIDA SCAN. NO RESULT YET. LFA G 22 PATENT AND D5NS INFUSING AT 80ML/HR AND NO S/S INFILTRATION NOTED. BED LOW AND LOCKED. SIDE RAILS UP X3. CALL LIGHT WITHIN REACH. WILL ENDORSE TO MAINSPRING REVERSE WINDER.
[2020-01-14] MEDS ORDERED: VANCOMYCIN 1 GM in IV D5W 250 ML IV ONE (18:30)
--- NOTE | 2020-01-14 18:54 | NUR ---
MS/RN NOTE CEMENT [employer] [address] ANN IS MADE AWARE THAT HIDA SCAN RESULT IS NOT AVAILABLE YET AND THAT THE PATIENT HAS BEEN NPO SINCE MIDNIGHT. RECEIVED NEW ORDER TO DISCONTINUE NPO ORDER AND PLACE A NEW ORDER OF "Start clear liquid diet on 01/14/20 dinner and advance diet as tolerated." READ BACK, VERIFIED. NOTED AND CARRIED OUT.
[2020-01-14 18:55] LABS: APPEARANCE,URINE SL CLOUDY (CLEAR); BILIRUBIN,URINE NEGATIVE (NEGATIVE); BLOOD, URINE NEGATIVE Ery/uL (NEGATIVE); COLOR,URINE YELLOW (YELLOW); KETONES,URINE NEGATIVE (NEGATIVE); LEUKOCYTE ESTERASE ,URINE SMALL (NEGATIVE); NITRITE, URINE NEGATIVE (NEGATIVE); PROTEIN,URINE TRACE mg/dl (NEGATIVE); UGLUCOSE NEGATIVE (NEGATIVE); UROBILINOGEN,URINE 0.2 EU/dL (0.2)
[2020-01-14 19:03] LABS: CREATININE, URINE 137.5 MG/DL (30.0-125.0); URINE TOTAL PROTEIN 130.4 mg/dL (0-11.9)
[2020-01-14 19:10] LABS: BACTERIA,URINE 4+ /HPF (None Seen); RBC,URINE 0-2 /HPF (0-2); SQUAMOUS EPITHELIAL CELL,UR 0-2 /HPF (None Seen)
[2020-01-14 19:41] LABS: EOSINOPHIL,URINE None Seen
--- NOTE | 2020-01-14 19:50 | NUR ---
RN NOTES RECEIVED PATIENT IN BED. THE PATIENT IS ALERT AND ORIENTED X3. DENIES ANY PAIN. PATIENT IS IN ROOM AIR AND DENIES SOB. RESPIRATION REGULAR AND UNLABORED. NO SIGNS OF ACUTE DISTRESS NOTED, THE PATIENT IN NO APPARENT DISTRESS. ON CLEAR LIQUID DIET, HIDA SCAN DONE AWAITING FOR THE RESULT. LFA G 22 PATENT AND D5NS INFUSING AT 80 ML/HR AND NO S/S INFILTRATION NOTED. BED LOW AND LOCKED. SIDE RAILS UP X3. CALL LIGHT WITHIN REACH. WILL CONTINUE TO MONITOR ACCORDINGLY.
[2020-01-14 20:28] VITALS: BP 157/57
[2020-01-14] MEDS: SIMVASTATIN 20 MG TABLET PO SCH (21:05)
[2020-01-14] MEDS: ACETAMINOPHEN 325 MG TABLET PO PRN (22:42)
[2020-01-14] MEDS: INSULIN REGULAR, HUMAN 100 UNIT/ML 3 ML VIAL SQ PRN (23:33)
[2020-01-15] MEDS: hydrALAZINE HCL 25 MG TABLET PO SCH ×3 (05:00→20:06)
[2020-01-15] MEDS: IV D5/ 0.9% NACL 1,000 ML IV PRN (05:36)
[2020-01-15 06:09] LABS: BASOPHILS # (AUTO) 0.1 /CMM (0.0-0.2); BASOPHILS % (AUTO) 0.6 % (0.0-2.0); EOSINOPHILS % (AUTO) 2.4 % (0.0-6.0); HEMATOCRIT 23 % (33-45); HEMOGLOBIN 7.3 g/dL (11.5-14.8); LYMPHOCYTES # (AUTO) 2.1 /CMM (0.8-4.8); LYMPHOCYTES % (AUTO) 9.8 % (20.0-44.0); MEAN CORPUSCULAR HGB CONC 32 g/dl (31.0-36.0); MEAN CORPUSCULAR VOLUME 83 fL (82-100); MONOCYTES # (AUTO) 1.3 /CMM (0.1-1.30); MONOCYTES % (AUTO) 5.8 % (2.0-12.0); NEUTROPHILS # (AUTO) 17.7 /CMM (1.8-8.9); NEUTROPHILS % (AUTO) 81.4 % (43.0-81.0); PLATELET COUNT (AUTO) 338 /CMM (150-450); RED BLOOD CELL COUNT(AUTO) 2.77 MIL/uL (4.0-5.2); WHITE BLOOD COUNT (AUTO) 21.8 K/uL (4.3-11.0)
[2020-01-15 06:27] LABS: ALBUMIN 2.4 g/dL (3.4-5.0); ALKALINE PHOSPHATASE 79 U/L (46-116); ASPARTATE AMINOTRANSFERASE 9 U/L (15-37); BILIRUBIN,TOTAL 0.1 mg/dL (0.2-1.0); CALCIUM, SERUM 7.8 mg/dL (8.5-10.1); CARBON DIOXIDE 20 mmol/L (21-32); CHLORIDE 107 mmol/L (98-107); CREATININE 2.7 mg/dL (0.6-1.3); GLUCOSE 100 mg/dL (74-106); MAGNESIUM 2.2 mg/dL (1.8-2.4); PHOSPHORUS 5.2 mg/dL (2.5-4.9); POTASSIUM 4.3 mmol/L (3.5-5.1); SODIUM SERUM 136 mmol/L (136-145); TOTAL PROTEIN, SERUM 5.9 g/dL (6.4-8.2); UREA NITROGEN, BLOOD 35 mg/dL (7-18)
[2020-01-15 06:35] LABS: ALANINE AMINOTRANSFERASE < 6 U/L (12-78)
--- NOTE | 2020-01-15 07:30 | NUR ---
MS/RN OPENING NOTES RECEIVED PATIENT IN BED RESTING. THE PATIENT IS ALERT AND ORIENTED X2. DENIES PAIN. PATIENT IS ON ROOM AIR AND DENIES SOB. RESPIRATION REGULAR AND UNLABORED. THE PATIENT IN NO APPARENT DISTRESS. LFA G #22 PATENT AND D5NS INFUSING AT 80 ML/HR AND NO S/S INFILTRATION NOTED. BED HAS BEEN PLACED IN THE LOW POSITION AND LOCKED. SIDE RAILS UP X3. CALL LIGHT WITHIN REACH. WILL CONTINUE TO MONITOR THROUGH OUT SHIFT.
[2020-01-15 08:00] VITALS: BP 132/49
[2020-01-15] MEDS: MEROPENEM 1 G in IV NS 0.9% 100 ML IV SCH ×2 (08:27→19:51)
[2020-01-15] MEDS: FERROUS SULFATE (325 MG) 325 MG/TAB TABLET PO SCH ×2 (08:28→17:40)
[2020-01-15] MEDS: LEVOTHYROXINE SODIUM 112 MCG TABLET PO SCH (08:28)
[2020-01-15] MEDS: SERTRALINE HCL 50 MG TABLET PO SCH (08:28)
[2020-01-15] MEDS: HYDROGEL DRESSING 90 GM TUBE TP SCH (08:39)
[2020-01-15] MEDS: ACETAMINOPHEN 325 MG TABLET PO PRN ×2 (09:21→19:52)
[2020-01-15] MEDS: BLOOD SUGAR DIAGNOSTIC 1 EACH STRIP IN SCH ×4 (09:58→21:14)
[2020-01-15] MEDS: INSULIN REGULAR, HUMAN 100 UNIT/ML 3 ML VIAL SQ PRN (12:19)
[2020-01-15] MEDS: ONDANSETRON HCL/PF 4 MG/2 ML VIAL IVP PRN (13:00)
[2020-01-15] MEDS: ENOXAPARIN SODIUM 30 MG/0.3 ML DISP.SYRIN SQ SCH (15:24)
[2020-01-15 16:00] VITALS: BP 133/55
[2020-01-15] MEDS: VANCOMYCIN 500 MG in IV D5W 100 ML IV SCH (17:40)
--- NOTE | 2020-01-15 18:55 | NUR ---
MS/RN CLOSING PATIENT IS IN BED RESTING. THE PATIENT IS ALERT AND ORIENTED X2. DENIES PAIN AT THE MOMENT. PATIENT IS ON ROOM AIR AND DENIES SOB. RESPIRATION REGULAR AND UNLABORED. THE PATIENT IN NO APPARENT DISTRESS. LFA G #22 PATENT AND D5NS INFUSING AT 80 ML/HR AND NO S/S INFILTRATION NOTED. BED HAS BEEN PLACED IN THE LOW POSITION AND LOCKED. SIDE RAILS UP X3. CALL LIGHT WITHIN REACH. WILL ENDORSE CARE TO BUTTER MELTER.
--- NOTE | 2020-01-15 19:05 | NUR ---
MS/RN NOTE THE PATIENT STATED FEELING CONSTIPATED. GARETH JUAREZ IS MADE AWARE AND RECEIVED AN ORDER OF MILK OF IMANI PO HS PRN. THE ORDER IS READ BACK, VERIFIED. NOTED AND CARRIED OUT. Addendum: 01/15/20 at 1908 by MIRIAM TATUM RN /JASKARAN NOTE PM SHIFT IS ENDORSED TO ADMINISTER THE MEDICATION.
[2020-01-15] MEDS ORDERED: MAGNESIUM HYDROXIDE 30 ML UDC PO PRN (19:30)
--- NOTE | 2020-01-15 19:52 | NUR ---
MS/RN OPENING NOTES PATIENT IN BED, AWAKE, ABLE TO SPEAK IN LITHUANIAN, VERBALIZED"cABESA DOLOR" TYLENOL TO BE GIVEM ABLE TO TOLERATE ORAL. WITH SCHEDULED IV ANTIBIOTIC, RESPIRATIONS EVEN AND UNLABORED, SKIN WARM TO TOUCH, BED LOCKED, SIDE RAILS UO, CALL LIGHTS WITHIN REACH. IV SITE PATENT AND ON IV D5 ND AT 80 ML/HR, TO MONITOR.
[2020-01-15 20:00] VITALS: BP_SYST 130; BP_SYST 164; BP_DIAS 62; BP_DIAS 64
--- NOTE | 2020-01-15 20:02 | NUR ---
BLOOD PRESSURE CHECK ELEVATED AT 164/62 AND PULSE 78
[2020-01-15] MEDS: SIMVASTATIN 20 MG TABLET PO SCH (21:16)
--- NOTE | 2020-01-15 21:33 | NUR ---
BLOOD SUGAR CHECK AT 92. OFFERED SOME SNACKS.
[2020-01-16] MEDS: IV D5/ 0.9% NACL 1,000 ML IV PRN ×2 (02:43→17:14)
--- NOTE | 2020-01-16 03:05 | NUR ---
MS/RN NOTES MILK OF MAGNESIA GIVEN BY MOUTH DUE TO NO BM FOR MORE THAN 3 DAYS. HOB AND TOLERATED.
[2020-01-16] MEDS: hydrALAZINE HCL 25 MG TABLET PO SCH ×3 (04:12→21:24)
[2020-01-16] MEDS: BLOOD SUGAR DIAGNOSTIC 1 EACH STRIP IN SCH ×4 (05:43→21:49)
--- NOTE | 2020-01-16 07:06 | NUR ---
307-1 TELE/RN NOTES PATIENT ALERT X2, ABLE TO PARTICIPATE WITH CARE BUT REQUIRE MONITOIRNG FOR SAFETY. ON ROOM AIR, RESPIRATIONS EVEN AND UNLABORED, SKIN WARM TO TOUCH, ATTENDED TO ALL NEEDS, ASSISTED TO BATHROOM FOR SAFETY, MONITOREDF FOR ANY CHANGES, CALL LIGHTS WITHIN REACH, PROVIDED FLUIDS,IV SITE PATENT. WILL ENDORSE TO AM RN FOR YOLIS. TELE SINUS RYTHM.
[2020-01-16 07:12] LABS: BASOPHILS # (AUTO) 0.1 /CMM (0.0-0.2); BASOPHILS % (AUTO) 0.6 % (0.0-2.0); EOSINOPHILS % (AUTO) 2.8 % (0.0-6.0); HEMATOCRIT 25 % (33-45); HEMOGLOBIN 8.1 g/dL (11.5-14.8); LYMPHOCYTES # (AUTO) 1.6 /CMM (0.8-4.8); LYMPHOCYTES % (AUTO) 8.4 % (20.0-44.0); MEAN CORPUSCULAR HGB CONC 33 g/dl (31.0-36.0); MEAN CORPUSCULAR VOLUME 83 fL (82-100); MONOCYTES # (AUTO) 1.1 /CMM (0.1-1.30); MONOCYTES % (AUTO) 5.8 % (2.0-12.0); NEUTROPHILS # (AUTO) 15.4 /CMM (1.8-8.9); NEUTROPHILS % (AUTO) 82.4 % (43.0-81.0); PLATELET COUNT (AUTO) 356 /CMM (150-450); RED BLOOD CELL COUNT(AUTO) 2.98 MIL/uL (4.0-5.2); WHITE BLOOD COUNT (AUTO) 18.7 K/uL (4.3-11.0)
[2020-01-16 07:16] LABS: CALCIUM, SERUM 7.3 mg/dL (8.5-10.1); CARBON DIOXIDE 20 mmol/L (21-32); CHLORIDE 109 mmol/L (98-107); CREATININE 3.2 mg/dL (0.6-1.3); GLUCOSE 134 mg/dL (74-106); MAGNESIUM 2.3 mg/dL (1.8-2.4); PHOSPHORUS 5.2 mg/dL (2.5-4.9); POTASSIUM 4.2 mmol/L (3.5-5.1); SODIUM SERUM 137 mmol/L (136-145); UREA NITROGEN, BLOOD 38 mg/dL (7-18)
--- NOTE | 2020-01-16 07:31 | NUR ---
MS RN OPENING NOTES RECEIVED PATIENT IN BED, ASLEEP. PATIENT IS ON ROOM AIR; BREATHING IS EVEN AND UNLABORED; NO SOB PRESENT AT THIS TIME. NO SIGNS OF PAIN SUCH MOANING, FACIAL GRIMACING OR GUARDING. LFA IV ACCESS G #22 PRESENT AND INTACT INFUSING D5NS AT 80 MLS/HR. SAFETY PRECAUTIONS IN PLACE; BED IN LOW POSITION AND LOCKED, RAILS UP X2, CALL LIGHT WITHIN REACH. WILL CONTINUE TO MONITOR PATIENT.
[2020-01-16 08:00] VITALS: BP 149/66
[2020-01-16] MEDS: LEVOTHYROXINE SODIUM 112 MCG TABLET PO SCH (08:04)
[2020-01-16] MEDS: FERROUS SULFATE (325 MG) 325 MG/TAB TABLET PO SCH ×2 (08:04→17:37)
[2020-01-16] MEDS: SERTRALINE HCL 50 MG TABLET PO SCH (08:04)
[2020-01-16] MEDS: MEROPENEM 1 G in IV NS 0.9% 100 ML IV SCH ×2 (08:05→20:12)
[2020-01-16 08:40] LABS: BAND % (MANUAL) 3 % (0.0-5.0); EOSINOPHILS % (MANUAL) 2 % (0-4); LYMPHOCYTES % (MANUAL) 9 % (16-48); MONOCYTES % (MANUAL) 4 % (0-11.0); NEUTROPHILS % (MANUAL) 82 (42-76)
[2020-01-16] MEDS: HYDROGEL DRESSING 90 GM TUBE TP SCH (09:08)
--- NOTE | 2020-01-16 11:44 | NUR ---
MS RN NOTES PATIENT HAD APPLE JUICE ; HER BS TENDS TO BE LOW. 1130 ACCU-CHECK WITH A READING OF 158. NO INSULIN ADMINISTERED AT THIS TIME BECAUSE PATIENT REFUSED BREAKFAST AND LUNCH. WILL CONTINUE TO MONITOR.
[2020-01-16] MEDS: ENOXAPARIN SODIUM 30 MG/0.3 ML DISP.SYRIN SQ SCH (14:20)
[2020-01-16 16:00] VITALS: BP 149/57
[2020-01-16] MEDS: VANCOMYCIN 500 MG in IV D5W 100 ML IV SCH (18:40)
--- NOTE | 2020-01-16 18:41 | NUR ---
MS RN CLOSING NOTES PATIENT REMAINS IN BED, ASLEEP. PATIENT IS ON ROOM AIR; BREATHING IS EVEN AND UNLABORED; NO SOB PRESENT AT THIS TIME. NO SIGNS OF PAIN SUCH MOANING, FACIAL GRIMACING OR GUARDING. DURING THE DAY PATIENT WAS QUITE AND COMPLIANT; DID NOT EAT ANYTHING STATING SHE IS NOT HUNGRY; SHE JUST HAD SOME JUICE TO DRINK. LFA IV ACCESS G #22 PRESENT AND INTACT INFUSING D5NS AT 80 MLS/HR. ALL NEEDS ATTENDED TO THROUGHOUT THE DAY. SAFETY PRECAUTIONS IN PLACE; BED IN LOW POSITION AND LOCKED, RAILS UP X2, CALL LIGHT WITHIN REACH. WILL ENDORSE TO BOTTOM TURNING LATHE TENDER NURSE.
--- NOTE | 2020-01-16 19:30 | NUR ---
MSRN ASLEEP, EASILY AROUSABLE. NO NEEDS FOR NOW. PRESENT IVF INFUSING WELL. SAFETY PRECAUTIONS OBSERVED, CLOSELY WATCHED. TO CONTINUE.
[2020-01-16 21:13] VITALS: BP 154/69
[2020-01-16] MEDS: SIMVASTATIN 20 MG TABLET PO SCH (21:50)
--- NOTE | 2020-01-16 21:51 | NUR ---
MSRN BS WAS 142, DECLINED SNACKS, HAD FEW SIPS OF APPLE JUICE ONLY. PRESENT IVF CONTINUED.
[2020-01-17 00:30] VITALS: BP 123/57
[2020-01-17 05:24] VITALS: BP 146/59
--- NOTE | 2020-01-17 05:30 | NUR ---
MSRN IV SITE SWOLLEN, INFILTRATED, RESTARTED 22 GAUGE BY RN RIGHT FA WITH GOOD BLOOD RETURN.
[2020-01-17] MEDS: hydrALAZINE HCL 25 MG TABLET PO SCH ×3 (05:38→21:43)
[2020-01-17] MEDS: BLOOD SUGAR DIAGNOSTIC 1 EACH STRIP IN SCH ×4 (06:27→23:57)
[2020-01-17 06:29] LABS: BASOPHILS # (AUTO) 0.1 /CMM (0.0-0.2); EOSINOPHILS % (AUTO) 4.6 % (0.0-6.0); HEMATOCRIT 23 % (33-45); HEMOGLOBIN 7.7 g/dL (11.5-14.8); LYMPHOCYTES # (AUTO) 1.1 /CMM (0.8-4.8); LYMPHOCYTES % (AUTO) 7.6 % (20.0-44.0); MEAN CORPUSCULAR HGB CONC 33 g/dl (31.0-36.0); MEAN CORPUSCULAR VOLUME 83 fL (82-100); MONOCYTES # (AUTO) 0.9 /CMM (0.1-1.30); MONOCYTES % (AUTO) 6.5 % (2.0-12.0); NEUTROPHILS # (AUTO) 11.4 /CMM (1.8-8.9); NEUTROPHILS % (AUTO) 80.3 % (43.0-81.0); PLATELET COUNT (AUTO) 333 /CMM (150-450); RED BLOOD CELL COUNT(AUTO) 2.83 MIL/uL (4.0-5.2); WHITE BLOOD COUNT (AUTO) 14.2 K/uL (4.3-11.0)
[2020-01-17] MEDS ORDERED: ACETAMINOPHEN 325 MG TABLET ONE (06:29)
[2020-01-17] MEDS: ACETAMINOPHEN 325 MG TABLET PO PRN ×2 (06:30→16:47)
--- NOTE | 2020-01-17 06:30 | NUR ---
MSRN VERBALIZES HEADACHE, ADMINISTERED 2 TABS OF TYLENOL 650 MG. REPOSITIONED FOR COMFORT, HOB TO 45 DEGREES..
[2020-01-17 06:44] LABS: CALCIUM, SERUM 7.7 mg/dL (8.5-10.1); CARBON DIOXIDE 18 mmol/L (21-32); CHLORIDE 111 mmol/L (98-107); CREATININE 3.5 mg/dL (0.6-1.3); GLUCOSE 214 mg/dL (74-106); MAGNESIUM 2.4 mg/dL (1.8-2.4); PHOSPHORUS 5.4 mg/dL (2.5-4.9); POTASSIUM 4.4 mmol/L (3.5-5.1); SODIUM SERUM 138 mmol/L (136-145); UREA NITROGEN, BLOOD 39 mg/dL (7-18)
--- NOTE | 2020-01-17 07:25 | NUR ---
ms rn received patient,awake,alert,oriented x2-3,not in any form of distress, respirations even and unlabored, no sob noted, lungs are diminished,abdomen soft positive bowel sounds,denies pain at this time, will monitor patient.
[2020-01-17 08:00] VITALS: BP 146/55
[2020-01-17] MEDS: HYDROGEL DRESSING 90 GM TUBE TP SCH (09:00)
[2020-01-17] MEDS: LEVOTHYROXINE SODIUM 112 MCG TABLET PO SCH (09:35)
[2020-01-17] MEDS: MEROPENEM 1 G in IV NS 0.9% 100 ML IV SCH ×2 (09:35→20:17)
[2020-01-17] MEDS: FERROUS SULFATE (325 MG) 325 MG/TAB TABLET PO SCH ×2 (09:35→16:41)
[2020-01-17] MEDS: SERTRALINE HCL 50 MG TABLET PO SCH (09:35)
--- NOTE | 2020-01-17 09:40 | NUR ---
ms chowdhury breakfast served,due meds given,tolerated well.
--- NOTE | 2020-01-17 12:00 | NUR ---
ms rn bs - 132- no coverage given due to patient has tendency to go hypoglycemic at times and patient refused lunch today.
[2020-01-17] MEDS: ONDANSETRON HCL/PF 4 MG/2 ML VIAL IVP PRN (12:18)
[2020-01-17 16:00] VITALS: BP 149/58
[2020-01-17] MEDS: ENOXAPARIN SODIUM 30 MG/0.3 ML DISP.SYRIN SQ SCH (16:42)
--- NOTE | 2020-01-17 16:55 | NUR ---
ms rn on bed,no distress noted.
[2020-01-17] MEDS: VANCOMYCIN 500 MG in IV D5W 100 ML IV SCH (17:52)
[2020-01-17] MEDS: IV D5/ 0.9% NACL 1,000 ML IV PRN (17:53)
--- NOTE | 2020-01-17 19:45 | NUR ---
MSRN VERBALIZES HEADACHE REMINDED HAD DOSE OF TYLENOL GIVEN FEW HOURS AGO. STATED DOES NO HELP AND WANTED STRONGER PAIN MED. V/S STABLE, NO SOB. WILL CALL
[2020-01-17 20:36] VITALS: BP 152/74
[2020-01-17] MEDS ORDERED: IBUPROFEN 400 MG TABLET PO PRN (21:30)
[2020-01-17] MEDS: LINEZOLID 600 MG TABLET PO SCH (21:42)
[2020-01-17] MEDS: SIMVASTATIN 20 MG TABLET PO SCH (21:42)
--- NOTE | 2020-01-17 22:20 | NUR ---
MSRN DUE MEDS ADMINISTERED. REPOSITIONS SELF FOR COMFORT WITH MIN ASSIST. ENCOURAGED TO INCREASE ACTIVITY. OFFERED SNACKS REFUSED, ABLE TO DRINK APPLE JUICE WITH MEDS.
--- NOTE | 2020-01-18 00:56 | NUR ---
MSRN ASLEEP FOR NOW. BS AT MIDNIGHT WAS 115,
[2020-01-18] MEDS: hydrALAZINE HCL 25 MG TABLET PO SCH ×2 (06:30→14:08)
[2020-01-18 06:59] LABS: BASOPHILS # (AUTO) 0.2 /CMM (0.0-0.2); BASOPHILS % (AUTO) 1.2 % (0.0-2.0); HEMATOCRIT 25 % (33-45); LYMPHOCYTES # (AUTO) 1.5 /CMM (0.8-4.8); LYMPHOCYTES % (AUTO) 11.8 % (20.0-44.0); MEAN CORPUSCULAR HGB CONC 33 g/dl (31.0-36.0); MEAN CORPUSCULAR VOLUME 83 fL (82-100); MONOCYTES # (AUTO) 0.8 /CMM (0.1-1.30); MONOCYTES % (AUTO) 6.6 % (2.0-12.0); NEUTROPHILS # (AUTO) 9.4 /CMM (1.8-8.9); NEUTROPHILS % (AUTO) 73.4 % (43.0-81.0); PLATELET COUNT (AUTO) 323 /CMM (150-450); RED BLOOD CELL COUNT(AUTO) 2.97 MIL/uL (4.0-5.2); WHITE BLOOD COUNT (AUTO) 12.8 K/uL (4.3-11.0)
--- NOTE | 2020-01-18 07:00 | NUR ---
MSRN BS WAS 115. NO OTHER NEEDS MADE. WENT BACK TO SLEEP.
[2020-01-18] MEDS: BLOOD SUGAR DIAGNOSTIC 1 EACH STRIP IN SCH ×3 (07:01→17:52)
[2020-01-18 07:12] LABS: ALANINE AMINOTRANSFERASE 6 U/L (12-78); ALBUMIN 2.5 g/dL (3.4-5.0); ALKALINE PHOSPHATASE 66 U/L (46-116); ASPARTATE AMINOTRANSFERASE 8 U/L (15-37); BILIRUBIN,TOTAL 0.2 mg/dL (0.2-1.0); CALCIUM, SERUM 7.7 mg/dL (8.5-10.1); CARBON DIOXIDE 19 mmol/L (21-32); CHLORIDE 107 mmol/L (98-107); CREATININE 3.8 mg/dL (0.6-1.3); GLUCOSE 124 mg/dL (74-106); MAGNESIUM 2.5 mg/dL (1.8-2.4); PHOSPHORUS 5.5 mg/dL (2.5-4.9); POTASSIUM 4.6 mmol/L (3.5-5.1); SODIUM SERUM 137 mmol/L (136-145); TOTAL PROTEIN, SERUM 6.1 g/dL (6.4-8.2); UREA NITROGEN, BLOOD 41 mg/dL (7-18)
--- NOTE | 2020-01-18 07:20 | NUR ---
ms rn received on bed, awake,alert,oriented x2,not in any form of distress, respirations even and unlabored,no sob noted, lungs are clear,abdomen soft,positive bowel sounds, denies pain at this time, will monitor patient.
[2020-01-18 08:00] VITALS: BP 187/73
[2020-01-18 08:11] LABS: COMPLEMENT C3, SERUM 67 mg/dL (82-167); COMPLEMENT C4, SERUM 21 mg/dL (14-44)
--- NOTE | 2020-01-18 08:30 | NUR ---
ms luciana breakfast served,due meds given,tolerated well,patient does not have appetite.
[2020-01-18 09:11] LABS: *ANA ANTI-CENTROMERE B AB <0.2 AI (0.0-0.9); *ANA ANTI-DNA(DS) AB, QN <1 IU/mL (0-9); *ANA ANTI-JO-1 <0.2 AI (0.0-0.9); *ANA ANTICHROMATIN ANTIBODY <0.2 AI (0.0-0.9); *ANA RNP ANTIBODIES <0.2 AI (0.0-0.9); *ANA SJOGREN'S ANTI-SS-A <0.2 AI (0.0-0.9); *ANA SJOGREN'S ANTI-SS-B <0.2 AI (0.0-0.9); *ANAANTI-SCLERODERMA-70 AB <0.2 AI (0.0-0.9); *ANASMITH AB <0.2 AI (0.0-0.9)
[2020-01-18] MEDS: MEROPENEM 1 G in IV NS 0.9% 100 ML IV SCH (09:31)
[2020-01-18] MEDS: LEVOTHYROXINE SODIUM 112 MCG TABLET PO SCH (09:32)
[2020-01-18] MEDS: SERTRALINE HCL 50 MG TABLET PO SCH (09:32)
[2020-01-18] MEDS: FERROUS SULFATE (325 MG) 325 MG/TAB TABLET PO SCH ×2 (09:33→17:53)
[2020-01-18] MEDS: LINEZOLID 600 MG TABLET PO SCH (09:33)
--- NOTE | 2020-01-18 09:50 | NUR ---
ms rn was seen by allison donnelly/ orders made and carried out,all needs attended.
--- NOTE | 2020-01-18 12:00 | NUR ---
ms rn patient refused to check sugar, patient ate lunch at this time.
--- NOTE | 2020-01-18 14:00 | NUR ---
ms rn patient's niece called, patient wants to go [place] today, texted allison, family will pick patient at 530 pm.
[2020-01-18] MEDS: ENOXAPARIN SODIUM 30 MG/0.3 ML DISP.SYRIN SQ SCH (14:09)
[2020-01-18 16:00] VITALS: BP 163/63
[2020-01-18] MEDS: HYDROGEL DRESSING 90 GM TUBE TP SCH (17:53)
== END 2020-01-18 18:30 | disposition left against medical advice (07) | DRG 380 ==
LOC: ER 06:40 → TELE 10:27 → MED 01-10 07:53
PROVIDERS: ADMIT Nurse Practitioner Acute Care; ATTEND Hospitalist
DX: E11.649 Type 2 diabetes mellitus with hypoglycemia without coma (principal); L97.429 Non-pressure chronic ulcer of left heel and midfoot with unspecified severity; J69.0 Pneumonitis due to inhalation of food and vomit; N17.0 Acute kidney failure with tubular necrosis; R65.11 Systemic inflammatory response syndrome (SIRS) of non-infectious origin with acute organ dysfunction; G93.41 Metabolic encephalopathy; E11.621 Type 2 diabetes mellitus with foot ulcer; E44.0 Moderate protein-calorie malnutrition; I10 Essential (primary) hypertension; E03.9 Hypothyroidism, unspecified; E78.5 Hyperlipidemia, unspecified; Z88.0 Allergy status to penicillin; Z79.84 Long term (current) use of oral hypoglycemic drugs; Z79.899 Other long term (current) drug therapy; E87.1 Hypo-osmolality and hyponatremia; F43.9 Reaction to severe stress, unspecified; D64.9 Anemia, unspecified; M19.90 Unspecified osteoarthritis, unspecified site; E11.40 Type 2 diabetes mellitus with diabetic neuropathy, unspecified; M62.562 Muscle wasting and atrophy, not elsewhere classified, left lower leg; M62.561 Muscle wasting and atrophy, not elsewhere classified, right lower leg; D50.9 Iron deficiency anemia, unspecified; I70.0 Atherosclerosis of aorta; J98.11 Atelectasis; K80.20 Calculus of gallbladder without cholecystitis without obstruction; K82.8 Other specified diseases of gallbladder; Y95 Nosocomial condition; Z91.14 Patient's other noncompliance with medication regimen; Z91.19 Patient's noncompliance with other medical treatment and regimen
CPT/HCPCS: 36415; 71045-TC; 76705-TC; 76770-TC; 78226; 80048-TC; 80053-TC; 80061-TC; 80076-TC; 80202-TC; 81000-TC; 82550-TC; 82570-TC; 82962-TC; 83540-TC; 83690-TC; 83735-TC; 83970; 84100-TC; 84155; 84155-TC; 84165; 84300-TC; 84439-TC; 84443-TC; 84481; 84484-TC; 85025-TC; 85652-TC; 86225; 86235; 86706; 86803; 87040-TC; 87081-TC; 87086-TC; 87340; 93307-TC; 97110-TC; 97116-TC; 97530-TC; A6248; A9537; G0378; J1650; J1815; J2185; J2405; J2916; J3370; J7030; J7042; J7060; J7070

== ENCOUNTER 2020-01-20 09:12 | Inpatient (IN) | payer MEDICAID ==
[~2020-01-20] VITALS: Ht 157.5 cm; Wt 72.6 kg
[~2020-01-20 09:12] MED LIST: FERR325T23 PO; GLIM2TAB31 PO; LEVO100T9 PO; LISI40TA4 PO; MELO-107 PO; SERT50TA12 PO; SIMV-46 PO
[2020-01-20] MEDS ORDERED: IV NS 0.9% 1,000 ML BAG IV ONE (09:30)
[2020-01-20 09:39] LABS: BASOPHILS # (AUTO) 0.1 /CMM (0.0-0.2); HEMATOCRIT 26 % (33-45); HEMOGLOBIN 8.4 g/dL (11.5-14.8); LYMPHOCYTES # (AUTO) 0.7 /CMM (0.8-4.8); LYMPHOCYTES % (AUTO) 5.5 % (20.0-44.0); MEAN CORPUSCULAR HGB CONC 32 g/dl (31.0-36.0); MEAN CORPUSCULAR VOLUME 84 fL (82-100); MONOCYTES # (AUTO) 0.4 /CMM (0.1-1.30); MONOCYTES % (AUTO) 2.8 % (2.0-12.0); NEUTROPHILS # (AUTO) 11.4 /CMM (1.8-8.9); NEUTROPHILS % (AUTO) 88.7 % (43.0-81.0); PLATELET COUNT (AUTO) 272 /CMM (150-450); RED BLOOD CELL COUNT(AUTO) 3.08 MIL/uL (4.0-5.2); WHITE BLOOD COUNT (AUTO) 12.8 K/uL (4.3-11.0)
[2020-01-20 09:47] LABS: CARBON DIOXIDE 16 mmol/L (21-32); CHLORIDE 109 mmol/L (98-107); CREATININE 3.8 mg/dL (0.6-1.3); GLUCOSE 106 mg/dL (74-106); POTASSIUM 4.8 mmol/L (3.5-5.1); SODIUM SERUM 135 mmol/L (136-145); UREA NITROGEN, BLOOD 51 mg/dL (7-18)
[2020-01-20 09:54] LABS: ALANINE AMINOTRANSFERASE < 6 U/L (12-78); ALBUMIN 2.7 g/dL (3.4-5.0); ALKALINE PHOSPHATASE 71 U/L (46-116); ASPARTATE AMINOTRANSFERASE 13 U/L (15-37); BILIRUBIN,DIRECT 0.1 mg/dL (0.0-0.2); BILIRUBIN,TOTAL 0.2 mg/dL (0.2-1.0); LIPASE 92 U/L (73-393); TOTAL PROTEIN, SERUM 6.5 g/dL (6.4-8.2)
--- NOTE | 2020-01-20 10:16 | NUR ---
PAGED [facility].
--- NOTE | 2020-01-20 10:20 | NUR ---
DAUGHTER IN LAW. BRIANNA CHATTERJEE. [phone].
--- NOTE | 2020-01-20 10:22 | NUR ---
CALLED NURSING SUP FOR TELE BED.
[2020-01-20] MEDS ORDERED: VANCOMYCIN 1 GM in IV D5W 250 ML IV ONE (10:30)
[2020-01-20] MEDS ORDERED: CEFEPIME 1 GM in IV D5W 50 ML IV ONE (10:30)
--- NOTE | 2020-01-20 10:51 | NUR ---
Nurse Knowledge exchange to RN Alison. No acute changes, NO obvious distress Vss
--- NOTE | 2020-01-20 10:55 | NUR ---
BP prior to transfer Dr Larson made aware w/orders
[2020-01-20] MEDS ORDERED: hydrALAZINE HCL IV 20 MG VIAL ONE (10:57)
[2020-01-20] MEDS ORDERED: hydrALAZINE HCL IV 20 MG VIAL IV ONE (11:00)
--- NOTE | 2020-01-20 11:09 | NUR ---
NURSING SUP GAVE 108.
--- NOTE | 2020-01-20 11:52 | NUR ---
Sbp 161 prior to transfer to floor. IV site intact Vanco infusing upon transfer. Transported w/EMT
[2020-01-20 12:00] VITALS: BP 126/70
[2020-01-20] MEDS ORDERED: Z GUARD REMEDY 2 OZ OINT TP PRN (12:00)
[2020-01-20] MEDS ORDERED: ONDANSETRON HCL/PF 4 MG/2 ML VIAL IVP PRN (12:00)
[2020-01-20] MEDS ORDERED: ACETAMINOPHEN 650 MG/SUPP.RECT RC PRN (12:00)
[2020-01-20] MEDS ORDERED: ACETAMINOPHEN 325 MG TABLET PO PRN (12:00)
--- NOTE | 2020-01-20 12:00 | NUR ---
ONCOLOGY ACCOUNT SPECIALISTLEVEE SUPERINTENDENT NOTE RECEIVED PT FROM ER IN BED, ASLEEP, ON ROOM AIR, SATURATING WELL, RESPIRATIONS EVEN AND UNLABORED, NO SIGNS OF RESPIRATORY DISTRESS NOTED. PT RESPONSIVE TO VERBAL AND PAINFUL STIMULI BUT CONTINUES TO BE DROWSY AND QUICKLY FALLS ASLEEP. IV SITE ON LEFT HAND G18 INTACT, PATENT. HEAD TO TOE ASSESSMENT PERFORMED. SKIN INTACT. ALL BELONGINGS ACCOUNTED FOR, BED IN LOW POSITION, LOCKED, CALL LIGHT WITHIN REACH.
[2020-01-20] MEDS: BLOOD SUGAR DIAGNOSTIC 1 EACH STRIP IN SCH ×3 (12:16→23:55)
[2020-01-20] MEDS: IV D5/0.45 NACL 1,000 ML IV PRN (12:40)
[2020-01-20 12:55] LABS: SERUM AMMONIA 33 umol/L (11-32)
[2020-01-20 16:00] VITALS: BP 156/80
[2020-01-20] MEDS: DEXTROSE 50%-WATER 50 ML DISP.SYRIN IV PRN (18:30)
--- NOTE | 2020-01-20 18:54 | NUR ---
YOUTH TEACHER CLOSING NOTE PT IN BED, ASLEEP, ON ROOM AIR, SATURATING WELL, RESPIRATIONS EVEN AND UNLABORED, NO SIGNS OF RESPIRATORY DISTRESS NOTED. IV SITE ON LEFT HAND G18 INTACT, PATENT INFUSING D5 1/2 NS AT 75CC/HR, NO SIGNS OF INFILTRATION NOTED. BED IN LOW POSITION, LOCKED, CALL LIGHT WITHIN REACH. WILL ENDORSE TO NOC SHIFT NURSE.
--- NOTE | 2020-01-20 19:10 | NUR ---
RN NOTE RECEIVED PATIENT IN BED RESTING, WITH HOB ELEVATED. ABLE TO MAKE NEEDS KNOWN IN GABONESE. BREATHING EVEN AND NON LABORED ON ROOM AIR. IN NO APPARENT DISTRESS NOTED AT THIS TIME. IV SITE ON LEFT HAND IS CLEAN, DRY, AND PATENT. ON D5 1/2 NS RUNNING AT 75 MLS/HR. CALL LIGHT IS WITHIN EASY REACH. BED IS LOWERED AND LOCKED FOR SAFETY. WILL CONTINUE TO MONITOR.
[2020-01-20 20:00] VITALS: BP 153/70
[2020-01-20] MEDS: MEROPENEM 500 MG in IV NS 0.9% 50 ML IV SCH (20:11)
[2020-01-20] MEDS: HEPARIN SODIUM, PORCINE 5000 UNITS/1 ML VIAL SQ SCH (21:05)
[2020-01-20] MEDS: LINEZOLID RTU BAG 600 MG in PREMIX 1 EA IV SCH (21:05)
[2020-01-21] VITALS: BP 175/92
[2020-01-21] MEDS: hydrALAZINE HCL IV 20 MG VIAL IV PRN ×2 (01:53→16:27)
[2020-01-21] MEDS: IV D5/0.45 NACL 1,000 ML IV PRN ×2 (03:31→22:34)
[2020-01-21 04:00] VITALS: BP 151/62
[2020-01-21] MEDS: DEXTROSE 50%-WATER 50 ML DISP.SYRIN IV PRN (05:54)
[2020-01-21] MEDS: BLOOD SUGAR DIAGNOSTIC 1 EACH STRIP IN SCH ×4 (06:11→23:38)
--- NOTE | 2020-01-21 06:47 | NUR ---
RN NOTE PATIENT SLEPT WELL THROUGHOUT THE NIGHT. PRN D50 IV GIVEN ORDERED FOR BLOOD SUGAR LEVEL OF 59 AT 6AM. ALL DUE MEDS GIVEN ORDERED AND TOLERATED WELL. KEPT PATIENT CLEAN, DRY, AND COMFORTABLE. WILL ENDORSE TO AM SHIFT RN FOR CONTINUATION OF CARE.
[2020-01-21 08:00] VITALS: BP 160/69
--- NOTE | 2020-01-21 08:05 | NUR ---
PATENT PROSECUTION ATTORNEY: pt is pending Covid19 result, without face mask!/applied, pt is drowsy, reactive by touch, belgian speaker, can answer Y/n, weak, no pain, O2sat.over 92%, SR, BP 160-69, no SOB, no external tremor/diaphoretic, last BG 140, NPO status, getting D5 1/2NS@75
[2020-01-21 08:19] LABS: BASOPHILS # (AUTO) 0.1 /CMM (0.0-0.2); BASOPHILS % (AUTO) 0.8 % (0.0-2.0); EOSINOPHILS % (AUTO) 6.2 % (0.0-6.0); HEMATOCRIT 27 % (33-45); HEMOGLOBIN 8.8 g/dL (11.5-14.8); LYMPHOCYTES # (AUTO) 1.3 /CMM (0.8-4.8); LYMPHOCYTES % (AUTO) 9.8 % (20.0-44.0); MEAN CORPUSCULAR HGB CONC 33 g/dl (31.0-36.0); MEAN CORPUSCULAR VOLUME 82 fL (82-100); MONOCYTES # (AUTO) 0.5 /CMM (0.1-1.30); MONOCYTES % (AUTO) 4.1 % (2.0-12.0); NEUTROPHILS # (AUTO) 10.3 /CMM (1.8-8.9); NEUTROPHILS % (AUTO) 79.1 % (43.0-81.0); PLATELET COUNT (AUTO) 288 /CMM (150-450); RED BLOOD CELL COUNT(AUTO) 3.28 MIL/uL (4.0-5.2)
[2020-01-21 08:24] LABS: ALANINE AMINOTRANSFERASE < 6 U/L (12-78); ALBUMIN 2.5 g/dL (3.4-5.0); ALKALINE PHOSPHATASE 63 U/L (46-116); ASPARTATE AMINOTRANSFERASE 13 U/L (15-37); BILIRUBIN,TOTAL 0.2 mg/dL (0.2-1.0); CALCIUM, SERUM 7.6 mg/dL (8.5-10.1); CARBON DIOXIDE 17 mmol/L (21-32); CHLORIDE 106 mmol/L (98-107); CREATININE 2.8 mg/dL (0.6-1.3); GLUCOSE 155 mg/dL (74-106); MAGNESIUM 2.6 mg/dL (1.8-2.4); PHOSPHORUS 5.3 mg/dL (2.5-4.9); POTASSIUM 4.3 mmol/L (3.5-5.1); SODIUM SERUM 133 mmol/L (136-145); TOTAL PROTEIN, SERUM 6.1 g/dL (6.4-8.2); UREA NITROGEN, BLOOD 42 mg/dL (7-18)
--- NOTE | 2020-01-21 08:30 | NUR ---
DISABILITY COORDINATOR: charge nurse was not notified re pt needs Midline, getting continuously IVF/low BS, Atbxs via one PIVL, called to SV
[2020-01-21 08:43] LABS: CHOLESTEROL 108 mg/dL (<200); CREATINE KINASE, TOTAL 50 U/L (26-192); HDL CHOLESTEROL 54 mg/dL (40-60); LDL 34 mg/dL (0-99); TRIGLYCERIDES 110 mg/dL (30-150)
[2020-01-21] MEDS: HEPARIN SODIUM, PORCINE 5000 UNITS/1 ML VIAL SQ SCH ×2 (08:58→20:45)
[2020-01-21] MEDS: MEROPENEM 500 MG in IV NS 0.9% 50 ML IV SCH ×2 (08:59→20:27)
[2020-01-21] MEDS: LINEZOLID RTU BAG 600 MG in PREMIX 1 EA IV SCH ×2 (08:59→21:02)
--- NOTE | 2020-01-21 10:06 | NUR ---
RN CAIO: pt.removed IVL, GIFTED PROGRAM TEACHER is in room, charge nurse notified
--- NOTE | 2020-01-21 12:00 | NUR ---
THERMOMETER MAKER: pt is drowsy, can follow simple commands with mosotho translation, no pain, no c/o, VS WNL, BG 78, still waiting midline placement/arms edema++, charge nurse is aware
[2020-01-21 12:42] VITALS: BP 152/74
--- NOTE | 2020-01-21 14:51 | NUR ---
LINOTYPE MACHINIST APPRENTICE: Catalino #[id number] PIVL placed in/continue IVF, pt.family called/updated
[2020-01-21 16:20] VITALS: BP 168/68
--- NOTE | 2020-01-21 16:21 | NUR ---
RISK LEAD: BP 168/68, SR, Hdlz 10 mg IV given
--- NOTE | 2020-01-21 17:15 | NUR ---
CALENDER WORKER HELPER: pt is drowsy, easy to awake up, no c/o, no pain, getting IVF, NPO, all PM/skin/bedbath care done
--- NOTE | 2020-01-21 19:10 | NUR ---
SCALLOP BINDER NOTES RECEIVED PT ON BED ASLEEP AROUSE EASILY, DIVEHI SPEAKING ON RA SPO2 98%, NO SIGN AND SYMPTOMS OF RESPIRATORY DISTRESS, ON TELE MONITOR WITH READING SINUS RHYTHM 80'S WITH MIDLINE ON DARWIN WITH D5/12NS RUNNING @ 75ML/HR INFUSING WITH LHAND # 22 INFUSING WELL, BUE EDEMA NON PITTING EDEMA NOTED, MAINTAIN ON DROPLET ISOLATION R/0 COVID, SAFETY MEASURE MAINTAINED BED ON LOWEST POSITION AND LOCKED SIDE RAILS UP X3 WILL CONT TO MONITOR
[2020-01-21 20:00] VITALS: BP 156/52
[2020-01-21] MEDS: INSULIN REGULAR, HUMAN 100 UNIT/ML 3 ML VIAL SQ PRN (23:41)
[2020-01-22] VITALS: BP 142/63
[2020-01-22 04:00] VITALS: BP 123/54
[2020-01-22] MEDS: BLOOD SUGAR DIAGNOSTIC 1 EACH STRIP IN SCH ×3 (05:51→17:40)
[2020-01-22] MEDS: INSULIN REGULAR, HUMAN 100 UNIT/ML 3 ML VIAL SQ PRN (05:52)
--- NOTE | 2020-01-22 06:46 | NUR ---
RN CLOSING NOTES PT ON BED NO SIGN AND SYMPTOMS OF ACUTE RESPIRATORY DISTRESS SPO2 98% VIA RA, PT IS MORE AWAKE NOW, NO COMPLAINT OF PAIN STILL ON TELE MONITOR WITH READING SINUS RHYTHM 80'S, NPO STATUS MAINTAIN, ALL NEEDS ATTENDED SAFETY MEASURE MAINTAINED, FAMILY MEMBERS MS DEAL MADE AWARE THAT THE PT IS NEGATIVE COVID .ENDORSED TO AM SHIFT NURSE
--- NOTE | 2020-01-22 06:59 | NUR ---
RN OPENING NOTES PT ON BED NO SIGN AND SYMPTOMS OF ACUTE RESPIRATORY DISTRESS O2 SAT 98% VIA RA, PT IS MORE AWAKE NOW, NO COMPLAINT OF PAIN STILL ON TELE MONITOR WITH READING SINUS RHYTHM 80'S, NPO STATUS. RECEIVING 75ML/HR OF 1/2 NS. CLIENT IS VERBAL AND DENIES PAIN, NO S/S OF PAIN OR ANY FORM OF DISTRESS. WILL CONTINUE TO EVALUATE.
--- NOTE | 2020-01-22 07:30 | NUR ---
rn notes received patient asleep, but easily awaken by verbal stimuli. responsive but expresses self best in Italian. able to follow command. on room air, breathing unlabored. not on any form of distress. no complaints of pain of any kind. sinus rhythm on the monitor with hr on the 70s. midline on the alicia, in place with clean and dry dressing. ivf infusing well at desires rate. patient looked comfortable in bed at this time. encourage to call for help and assistance when needed. safety measures observed and maintained. srx2 raised. bed in low and lock position. will continue to monitor patient accordingly
[2020-01-22 08:00] VITALS: BP 130/72
[2020-01-22 08:00] LABS: BASOPHILS # (AUTO) 0.2 /CMM (0.0-0.2); BASOPHILS % (AUTO) 1.3 % (0.0-2.0); EOSINOPHILS % (AUTO) 7.2 % (0.0-6.0); HEMATOCRIT 26 % (33-45); HEMOGLOBIN 8.4 g/dL (11.5-14.8); LYMPHOCYTES # (AUTO) 1.3 /CMM (0.8-4.8); MEAN CORPUSCULAR HGB CONC 32 g/dl (31.0-36.0); MEAN CORPUSCULAR VOLUME 83 fL (82-100); MONOCYTES # (AUTO) 0.5 /CMM (0.1-1.30); MONOCYTES % (AUTO) 4.2 % (2.0-12.0); NEUTROPHILS # (AUTO) 9.2 /CMM (1.8-8.9); NEUTROPHILS % (AUTO) 76.3 % (43.0-81.0); PLATELET COUNT (AUTO) 270 /CMM (150-450); RED BLOOD CELL COUNT(AUTO) 3.14 MIL/uL (4.0-5.2)
[2020-01-22 08:12] LABS: CALCIUM, SERUM 7.5 mg/dL (8.5-10.1); CARBON DIOXIDE 19 mmol/L (21-32); CHLORIDE 108 mmol/L (98-107); CREATININE 2.7 mg/dL (0.6-1.3); GLUCOSE 98 mg/dL (74-106); MAGNESIUM 2.5 mg/dL (1.8-2.4); PHOSPHORUS 5.6 mg/dL (2.5-4.9); POTASSIUM 4.4 mmol/L (3.5-5.1); SODIUM SERUM 134 mmol/L (136-145); UREA NITROGEN, BLOOD 41 mg/dL (7-18)
[2020-01-22] MEDS: MEROPENEM 500 MG in IV NS 0.9% 50 ML IV SCH ×2 (08:46→20:53)
[2020-01-22 09:09] LABS: COMPLEMENT C3, SERUM 63 mg/dL (82-167); COMPLEMENT C4, SERUM 20 mg/dL (14-44)
[2020-01-22 10:09] LABS: PTH, INTACT 44 pg/mL (15-65)
[2020-01-22] MEDS: HEPARIN SODIUM, PORCINE 5000 UNITS/1 ML VIAL SQ SCH ×2 (10:43→20:55)
[2020-01-22] MEDS: LINEZOLID RTU BAG 600 MG in PREMIX 1 EA IV SCH ×2 (10:44→22:26)
[2020-01-22 12:00] VITALS: BP 124/76
[2020-01-22] MEDS: IV D5/0.45 NACL 1,000 ML IV PRN (15:48)
[2020-01-22 16:00] VITALS: BP 117/70
[2020-01-22 20:00] VITALS: BP 150/70
[2020-01-23] VITALS (10 sets, daily range): BP systolic 106–188; BP diastolic 50–134
[2020-01-23] MEDS: BLOOD SUGAR DIAGNOSTIC 1 EACH STRIP IN SCH ×4 (00:56→18:24)
[2020-01-23 06:29] LABS: BASOPHILS # (AUTO) 0.1 /CMM (0.0-0.2); BASOPHILS % (AUTO) 1.3 % (0.0-2.0); EOSINOPHILS % (AUTO) 7.4 % (0.0-6.0); HEMATOCRIT 25 % (33-45); LYMPHOCYTES # (AUTO) 1.7 /CMM (0.8-4.8); MEAN CORPUSCULAR HGB CONC 33 g/dl (31.0-36.0); MEAN CORPUSCULAR VOLUME 84 fL (82-100); MONOCYTES # (AUTO) 0.5 /CMM (0.1-1.30); MONOCYTES % (AUTO) 5.5 % (2.0-12.0); NEUTROPHILS # (AUTO) 6.5 /CMM (1.8-8.9); NEUTROPHILS % (AUTO) 67.8 % (43.0-81.0); PLATELET COUNT (AUTO) 235 /CMM (150-450); RED BLOOD CELL COUNT(AUTO) 2.95 MIL/uL (4.0-5.2); WHITE BLOOD COUNT (AUTO) 9.5 K/uL (4.3-11.0)
[2020-01-23 06:49] LABS: ALANINE AMINOTRANSFERASE 6 U/L (12-78); ALBUMIN 2.3 g/dL (3.4-5.0); ALKALINE PHOSPHATASE 63 U/L (46-116); ASPARTATE AMINOTRANSFERASE 10 U/L (15-37); BILIRUBIN,TOTAL 0.3 mg/dL (0.2-1.0); CALCIUM, SERUM 7.5 mg/dL (8.5-10.1); CARBON DIOXIDE 19 mmol/L (21-32); CHLORIDE 105 mmol/L (98-107); CREATININE 2.3 mg/dL (0.6-1.3); GLUCOSE 99 mg/dL (74-106); MAGNESIUM 2.4 mg/dL (1.8-2.4); PHOSPHORUS 5.4 mg/dL (2.5-4.9); POTASSIUM 4.4 mmol/L (3.5-5.1); SODIUM SERUM 132 mmol/L (136-145); TOTAL PROTEIN, SERUM 5.5 g/dL (6.4-8.2); UREA NITROGEN, BLOOD 39 mg/dL (7-18)
--- NOTE | 2020-01-23 06:54 | NUR ---
RN CLOSING NOTES PT ON BED NO SIGN AND SYMPTOMS OF ACUTE RESPIRATORY DISTRESS O2 SAT 98% VIA RA, PT IS MORE AWAKE NOW, NO COMPLAINT OF PAIN STILL ON TELE MONITOR WITH READING SINUS RHYTHM 80'S, NPO STATUS. RECEIVING 75ML/HR OF 1/2 NS. THERE WAS NO CHANGE OF CONDITION AT THIS TIME. ALL NEEDS ATTENDED, . WILL ENDORSED TO AM SHIFT NURSE.
--- NOTE | 2020-01-23 07:30 | NUR ---
RN NOTES RECEIVED PATIENT BACK FROM COURSE INSTRUCTOR NURSE. PATIENT WITH NO ACUTE CHANGES. WILL CONTINUE TO MONITOR AND ANTICIPATE NEEDS
[2020-01-23] MEDS: MEROPENEM 500 MG in IV NS 0.9% 50 ML IV SCH ×2 (09:09→20:15)
[2020-01-23] MEDS: HEPARIN SODIUM, PORCINE 5000 UNITS/1 ML VIAL SQ SCH ×2 (09:10→22:02)
[2020-01-23] MEDS: LINEZOLID RTU BAG 600 MG in PREMIX 1 EA IV SCH ×2 (10:44→20:15)
--- NOTE | 2020-01-23 16:00 | NUR ---
RN NOTES 1600: BLOOD PRESSURE NOTED TO BE ELEVATED. 1630: BLOOD PRESSURE IS STILL ELEVATED, PAGED HOSPITALIST TO OBTAIN ORDER, AWAITING RESPONSE 1800: PAGED HOSPITALIST AGAIN TO OBTAIN ORDER, STILL WAITING FOR RESPONSE
[2020-01-23 16:09] LABS: *SPE ALBUMIN 2.7 g/dL (2.9-4.4); *SPE ALPHA-1-GLOBULIN 0.2 g/dL (0.0-0.4); *SPE ALPHA-2-GLOBULIN 0.5 g/dL (0.4-1.0); *SPE BETA GLOBULIN 0.6 g/dL (0.7-1.3); *SPE GLOBULIN, TOTAL 2.8 g/dL (2.2-3.9); *SPE M-SPIKE Not Observed g/dL (Not Observed); *SPEGAMMA GLOBULIN 1.4 g/dL (0.4-1.8)
[2020-01-23] MEDS: IV D5/0.45 NACL 1,000 ML IV PRN (17:33)
--- NOTE | 2020-01-23 19:23 | NUR ---
RN NOTES ENDORSED FOR CONTINUITY OF CARE. SPECIFICALLY MENTIONED TO INCOMING NURSE AND CHARGE NURSE TO FOLLOW UP AND POSSIBLY GET AND ORDER FOR THE ELEVATED BLOOD PRESSURE. PATIENT IS ON COMFORTABLE STATE. NO COMPLAINTS OF PAIN. NOT ON ANY FORM OF DISTRESS. ALL NURSING NEEDS ATTENDED AND MET. CALL LIGHT WITHIN REACH. PATIENT ENCOURAGE TO CALL FOR HELP AND ASSISTANCE.
--- NOTE | 2020-01-23 19:50 | NUR ---
RN OPENING NOTE RECEIVED IN BED, APPEARS RESTING COMFORTABLY. PATIENT AOX4, NO ACUTE DISTRESS NOTED. NO SOB NOTED. PATIENT'S BREATHING IS EVEN AND UNLABORED. PATIENT IS SATURATING AT 95% ON ROOM AIR; TOLERATING WELL. PATIENT ON TELE MONITOR READING SR, HR IS @77. NOTED IV SITE ON DARWIN MIDLINE, AND LEFT HAND G22; PATENT AND FLUSHING WELL,NO S/S OF INFECTION OR INFILTRATION. SAFETY MEASURES IMPLEMENTED PER PROTOCOL. PATIENT BED ALARM IS ON. HEAD OF BED ELEVATED. BED IS LOCKED, IN LOWEST POSITION AND SIDE RAILS UPX2. CALL LIGHT WITHIN REACH OF THE PATIENT. WILL CONTINUE TO MONITOR AND REASSESS FOR ANY CHANGES.
[2020-01-23] MEDS: hydrALAZINE HCL IV 20 MG VIAL IV PRN (20:14)
--- NOTE | 2020-01-23 20:15 | NUR ---
BP [id number]=530/79; PRN HYDRALAZINE 10 MG GIVEN ORDERED.
--- NOTE | 2020-01-23 21:00 | NUR ---
RN NOTE BP RECHECKED AND REVEALED 140/69. PATIENT NOT IN DISTRESS. NO COMPLAINTS OF PAIN/HEADACHE.
[2020-01-24] VITALS: BP 161/74
--- NOTE | 2020-01-24 00:15 | NUR ---
REASSESSED PATIENT BP 161/74. RECHECKED BP AND REVEALED 140/69.
[2020-01-24 00:18] VITALS: BP 161/74
[2020-01-24] MEDS: BLOOD SUGAR DIAGNOSTIC 1 EACH STRIP IN SCH ×3 (00:20→12:01)
[2020-01-24] MEDS: INSULIN REGULAR, HUMAN 100 UNIT/ML 3 ML VIAL SQ PRN ×2 (00:24→05:55)
[2020-01-24 04:00] VITALS: BP 159/61
--- NOTE | 2020-01-24 06:54 | NUR ---
RN CLOSING NOTE PATIENT REMAINS IN ROOM. NO SIGNS OF RESPIRATORY. SAFETY MEASURES IMPLEMENTED, BED IN LOWEST POSITION, LOCKED, SIDE RAILS UP, CALL LIGHT WITHIN REACH. ENDORSED TO INCOMING SHIFT RN FOR CONTINUITY OF CARE. LATEST BP 159/61
[2020-01-24 07:05] LABS: BASOPHILS # (AUTO) 0.1 /CMM (0.0-0.2); BASOPHILS % (AUTO) 1.4 % (0.0-2.0); EOSINOPHILS % (AUTO) 5.8 % (0.0-6.0); HEMATOCRIT 25 % (33-45); HEMOGLOBIN 8.2 g/dL (11.5-14.8); LYMPHOCYTES # (AUTO) 1.2 /CMM (0.8-4.8); LYMPHOCYTES % (AUTO) 12.6 % (20.0-44.0); MEAN CORPUSCULAR HGB CONC 33 g/dl (31.0-36.0); MEAN CORPUSCULAR VOLUME 83 fL (82-100); MONOCYTES # (AUTO) 0.7 /CMM (0.1-1.30); MONOCYTES % (AUTO) 7.5 % (2.0-12.0); NEUTROPHILS % (AUTO) 72.7 % (43.0-81.0); PLATELET COUNT (AUTO) 234 /CMM (150-450); RED BLOOD CELL COUNT(AUTO) 3.02 MIL/uL (4.0-5.2); WHITE BLOOD COUNT (AUTO) 9.7 K/uL (4.3-11.0)
[2020-01-24 07:30] LABS: CALCIUM, SERUM 7.5 mg/dL (8.5-10.1); CARBON DIOXIDE 18 mmol/L (21-32); CHLORIDE 107 mmol/L (98-107); CREATININE 1.9 mg/dL (0.6-1.3); GLUCOSE 119 mg/dL (74-106); MAGNESIUM 2.5 mg/dL (1.8-2.4); PHOSPHORUS 4.9 mg/dL (2.5-4.9); POTASSIUM 4.3 mmol/L (3.5-5.1); SODIUM SERUM 135 mmol/L (136-145); UREA NITROGEN, BLOOD 33 mg/dL (7-18)
[2020-01-24 08:00] VITALS: BP 131/69
[2020-01-24] MEDS: LINEZOLID RTU BAG 600 MG in PREMIX 1 EA IV SCH (09:19)
[2020-01-24] MEDS: MEROPENEM 500 MG in IV NS 0.9% 50 ML IV SCH (09:19)
[2020-01-24] MEDS: HEPARIN SODIUM, PORCINE 5000 UNITS/1 ML VIAL SQ SCH (09:19)
[2020-01-24 11:06] LABS: *ANA ANTI-CENTROMERE B AB <0.2 AI (0.0-0.9); *ANA ANTI-DNA(DS) AB, QN <1 IU/mL (0-9); *ANA ANTI-JO-1 <0.2 AI (0.0-0.9); *ANA ANTICHROMATIN ANTIBODY <0.2 AI (0.0-0.9); *ANA RNP ANTIBODIES <0.2 AI (0.0-0.9); *ANA SJOGREN'S ANTI-SS-A <0.2 AI (0.0-0.9); *ANA SJOGREN'S ANTI-SS-B <0.2 AI (0.0-0.9); *ANAANTI-SCLERODERMA-70 AB <0.2 AI (0.0-0.9); *ANASMITH AB <0.2 AI (0.0-0.9)
--- NOTE | 2020-01-24 12:00 | NUR ---
MS RN NOTES INSULIN VIAL NOT AVAILABLE IN THE PATIENT`S CASSETTE . CALLED PHARMACY AND REQUEST INSULIN.
--- NOTE | 2020-01-24 12:00 | NUR ---
MS RN NOTES INSULIN WAS NOT ADMINISTRATED, PATIENT HAS POOR APPETITE AND NOT EATING ADEQUATELY.
--- NOTE | 2020-01-24 12:15 | NUR ---
MS RN NOTED INFORMED HOSPITALIST KAILEY THAT PATIENT`S DAUGHTER IS REQUESTING MEDICATION TO INCREASE THE PATIENT`S APPETITE. DAUGHTER EXPLAINED THAT THEY HAVE DIFFICULTY FEEDING HER DUE TO POOR APPETITE.
[2020-01-24] MEDS ORDERED: MEGE400O4 PO (12:57)
--- NOTE | 2020-01-24 16:30 | NUR ---
MS RN NOTES PATIENT IS A/OX4 SATURATING 97% ROOM AIR . RETURNED ALL BELONGINGS. IV SITES REMOVED, IV BAND REMOVED, PATIENT REFUSED PNEUMONIA VACCINE, PT REFUSED TO TAKE PICTURE( BRUISES AND REDRESSES). PT WAS TRANSFERRED TO LOBBY TO BE TRANSFERRED BY HER DAUGHTER TO HOME.
== END 2020-01-24 15:35 | disposition home health service (06) | DRG 720 ==
LOC: ER 09:17 → TELE1 11:34 → MEDSG1 01-24 07:36
PROVIDERS: ADMIT Hospitalist; ATTEND Nurse Practitioner Acute Care
PROC: 05HA33Z Insertion of Infusion Device into Left Brachial Vein, Percutaneous Approach (ICD-10-PCS; principal; 2020-01-21)
DX: A41.9 Sepsis, unspecified organism (principal); N17.0 Acute kidney failure with tubular necrosis; G93.41 Metabolic encephalopathy; E44.0 Moderate protein-calorie malnutrition; J90 Pleural effusion, not elsewhere classified; J15.9 Unspecified bacterial pneumonia; E11.649 Type 2 diabetes mellitus with hypoglycemia without coma; E88.09 Other disorders of plasma-protein metabolism, not elsewhere classified; I10 Essential (primary) hypertension; E87.1 Hypo-osmolality and hyponatremia; E03.9 Hypothyroidism, unspecified; D50.9 Iron deficiency anemia, unspecified; Z68.29 Body mass index [BMI] 29.0-29.9, adult; K80.20 Calculus of gallbladder without cholecystitis without obstruction; Z91.14 Patient's other noncompliance with medication regimen; Z91.19 Patient's noncompliance with other medical treatment and regimen; E83.39 Other disorders of phosphorus metabolism; S90.922D Unspecified superficial injury of left foot, subsequent encounter; X58.XXXD Exposure to other specified factors, subsequent encounter; M19.90 Unspecified osteoarthritis, unspecified site; D72.829 Elevated white blood cell count, unspecified
CPT/HCPCS: 36415; 71045-TC; 80048-TC; 80053-TC; 80061-TC; 80076-TC; 82140-TC; 82550-TC; 82962-TC; 83605-TC; 83690-TC; 83735-TC; 83880; 83970; 84100-TC; 84155; 84165; 84484-TC; 85025-TC; 85652-TC; 85730-TC; 86225; 86235; 86706; 86803; 87040-TC; 87081-TC; 87340; 97110-TC; 97116-TC; 97530-TC; A4216; G0378; J0360; J0692; J1644; J1815; J2020; J2185; J3370; J3490; J7030; J7050; J7060; U0003-CS